=== PATIENT | male | born 1940 | race Caucasian/White ===

== ENCOUNTER 2018-05-02 14:04 | Inpatient (IN) | payer MEDICARE, OTHER ==
[2018-05-02] MEDS: AMIODARONE 900MG/D5W DRIP 500 ML IV ×3 (14:17→14:30)
[2018-05-02] MEDS: VECURONIUM 100 MG in DEXTROSE 5% 100 ML IV (14:17)
[2018-05-02 14:30] LABS: ADD MAN DIFF? NO
[2018-05-02] MEDS ORDERED: FENTAnyl 50 MCG/ML VIAL IV (14:30)
[2018-05-02 14:36] LABS: WHITE BLOOD COUNT 8.1 10^3/ul (4.8-10.8)
[2018-05-02 14:36] LABS: ABNORMAL IP MESSAGE 1; BASOPHIL # 0.1 10^3/ul (0.0-0.1); BASOPHILS % 0.9 % (0.0-2.0); EOSINOPHILS # 0.2 10^3/ul (0.0-0.5); EOSINOPHILS % 2.6 % (0.0-7.0); HEMATOCRIT 40.6 % (42.0-52.0); HEMOGLOBIN 13.4 g/dl (14.0-18.0); LYMPHOCYTES # 5.6 10^3/ul (0.8-2.9); LYMPHOCYTES % 68.5 % (15.0-51.0); MEAN CORPUSCULAR HEMOGLOBIN 30.6 pg (29.0-33.0); MEAN CORPUSCULAR VOLUME 92.7 fl (82.0-101.0); MONOCYTE # 0.4 10^3/ul (0.3-0.9); MONOCYTES % 5.3 % (0.0-11.0); NEUTROPHIL # 1.7 10^3/ul (1.6-7.5); NEUTROPHILS % 20.9 % (39.0-77.0); PLATELET COUNT 220 10^3/UL (140-415); POSITIVE DIFF @See below; RED BLOOD COUNT 4.38 10^6/ul (4.70-6.10); RED CELL DISTRIBUTION WIDTH 13.6 % (11.5-14.5)
[2018-05-02 14:55] LABS: INR 1.05; PROTIME 13.8 Sec (11.9-14.9); PT RATIO 1.1
[2018-05-02 14:56] LABS: PARTIAL THROMBOPLASTIN TIME 42.1 Sec (25.0-35.0)
[2018-05-02 14:57] LABS: MAGNESIUM 2.6 mg/dl (1.7-2.5)
[2018-05-02 14:58] LABS: ALANINE AMINOTRANSFERASE 136 IU/L (13-69); ALBUMIN/GLOBULIN RATIO 1.37; ALKALINE PHOSPHATASE 99 IU/L (42-121); ANION GAP 23 (8-16); ASPARTATE AMINO TRANSFERASE 125 IU/L (15-46); BILIRUBIN,INDIRECT 0.4 mg/dl (0-1.1); BILIRUBIN,TOTAL 0.4 mg/dl (0.2-1.3); BLOOD UREA NITROGEN 14 mg/dl (7-20); CALCIUM 10.1 mg/dl (8.4-10.2); CARBON DIOXIDE 18 mmol/L (21-31); CHLORIDE 94 mmol/L (97-110); CREATININE 1.13 mg/dl (0.61-1.24); GLUCOSE 325 mg/dl (70-220); POTASSIUM 4.2 mmol/L (3.5-5.1); SODIUM 131 mmol/L (135-144); TOTAL PROTEIN 6.9 g/dl (6.1-8.1)
[2018-05-02 15:00] LABS: LACTIC ACID 11.3 mmol/L (0.5-2.0)
[2018-05-02 15:09] LABS: TROPONIN-I 0.018 ng/ml (0.000-0.120)
[2018-05-02 15:18] LABS: ADD UMIC NO; UR ASCORBIC ACID NEGATIVE (NEGATIVE); UR BILIRUBIN (Dip) NEGATIVE (NEGATIVE); UR BLOOD (Dip) NEGATIVE (NEGATIVE); UR CLARITY CLEAR (CLEAR); UR COLOR COLORLESS (YELLOW); UR GLUCOSE (Dip) NEGATIVE (NEGATIVE); UR KETONES (Dip) NEGATIVE (NEGATIVE); UR LEUKOCYTE ESTERASE (Dip) NEGATIVE Leu/ul (NEGATIVE); UR NITRITE (Dip) NEGATIVE (NEGATIVE); UR SPECIFIC GRAVITY (Dip) 1.004 (1.003-1.030); UR TOTAL PROTEIN (Dip) NEGATIVE (NEGATIVE); UR UROBILINOGEN (Dip) NEGATIVE (NEGATIVE)
[2018-05-02] MEDS ORDERED: SOD CHLORIDE 0.9% 1,000 ML IV (15:55)
[2018-05-02] MEDS ORDERED: PROPOFOL 100 ML (16:26)
[2018-05-02] MEDS: SODIUM CHLORIDE 0.9% 500 ML BAG IV* (16:30)
[2018-05-02] MEDS: PROPOFOL 100 ML IV ×2 (16:45→22:55)
[2018-05-02] MEDS ORDERED: DEXTROSE 5%-0.45% NACL 1,000 ML IV (16:54)
[2018-05-02] MEDS ORDERED: MAGNESIUM HYDROXIDE 30ML CUP PO (17:00)
[2018-05-02] MEDS ORDERED: morphine 2 MG INJ IV (17:00)
[2018-05-02] MEDS ORDERED: ALBUTEROL HFA 8 GM INHALER INH (17:00)
[2018-05-02] MEDS: SOD CHLORIDE 0.9% 1,000 ML IV (17:00)
[2018-05-02 17:17] LABS: CREATINE KINASE 126 IU/L (23-200)
[2018-05-02 17:31] LABS: HEMOGLOBIN A1C 8.4 % (0-5.9)
[2018-05-02] MEDS ORDERED: DEXTROSE 50% 50 ML SYRINGE IV ×2 (18:00)
[2018-05-02] MEDS ORDERED: GLUCAGON 1 MG INJ IM (18:00)
[2018-05-02] MEDS ORDERED: GLUCOSE GEL 15 GRAM TUBE BUCCAL (18:00)
[2018-05-02] MEDS ORDERED: GLUCOSE GEL 15 GRAM TUBE PO (18:00)
[2018-05-02 18:14] LABS: AADO2 Arterial 404.7 mmHg (7.0-24.0); Allen Test ACCEPTAB; Arterial Base Excess -6.3 mmol/L (-3.0-3); Arterial Blood Gas Oxygen Sat 99.4 mmHG (95.0-100.0); Arterial COHb 0.2 % (0.0-3.0); Arterial Fraction of Oxyhgb 99.1 % (93.0-99.0); Arterial HCO3 18.2 mmol/L (22.0-26.0); Arterial MetHb 0.1 % (0.0-1.5); Arterial Total Hemglobin 13.2 g/dl (12.0-18.0); Arterial pCO2 33.2 mmhg (35-45); MODE VENT - AC; Site A-Line
[2018-05-02 19:44] LABS: CK INDEX 7.9
[2018-05-02 19:59] LABS: LACTIC ACID 3.2 mmol/L (0.5-2.0)
[2018-05-02 20:15] LABS: CREATINE KINASE 1071 IU/L (23-200)
[2018-05-02 22:43] LABS: CREATINE KINASE 1264 IU/L (23-200)
[2018-05-02] MEDS: INSULIN GLARGINE [LANTus] (100 UNITS/ML) SYG SC (22:56)
[2018-05-02] MEDS: INSULIN ASPART [NOVOLOG] 3 ML PEN SC (22:57)
[2018-05-02] MEDS: CLOPIDOGREL 75 MG TAB PO (23:52)
[2018-05-02] MEDS: ENOXAPARIN 60 MG/0.6 ML SYG SC (23:54)
[2018-05-03] MEDS: SOD CHLORIDE 0.9% 1,000 ML IV (02:00)
[2018-05-03] MEDS: INSULIN ASPART [NOVOLOG] 3 ML PEN SC ×3 (02:01→22:10)
[2018-05-03 05:24] LABS: ADD MAN DIFF? NO
[2018-05-03 05:36] LABS: WHITE BLOOD COUNT 12.9 10^3/ul (4.8-10.8)
[2018-05-03 05:36] LABS: BASOPHILS % 0.1 % (0.0-2.0); HEMATOCRIT 35.6 % (42.0-52.0); HEMOGLOBIN 12.2 g/dl (14.0-18.0); LYMPHOCYTES # 0.7 10^3/ul (0.8-2.9); LYMPHOCYTES % 5.2 % (15.0-51.0); MEAN CORPUSCULAR HEMOGLOBIN 30.2 pg (29.0-33.0); MEAN CORPUSCULAR HGB CONC 34.3 g/dl (32.0-37.0); MEAN CORPUSCULAR VOLUME 88.1 fl (82.0-101.0); MEAN PLATELET VOLUME 10.1 fl (7.4-10.4); MONOCYTE # 1.2 10^3/ul (0.3-0.9); MONOCYTES % 8.9 % (0.0-11.0); PLATELET COUNT 275 10^3/UL (140-415); RED BLOOD COUNT 4.04 10^6/ul (4.70-6.10); RED CELL DISTRIBUTION WIDTH 13.9 % (11.5-14.5)
[2018-05-03 05:51] LABS: CHOL/HDL RATIO 2.3 RATIO; HDL CHOLESTEROL 52 mg/dl (31-75); LDL CHOLESTEROL,CALCULATED 36 mg/dl; TRIGLYCERIDES 168 mg/dl (0-149)
[2018-05-03 05:51] LABS: CHOLESTEROL 122 mg/dl (100-200)
[2018-05-03 05:59] LABS: B-TYPE NATRIURETIC PEPTIDE 6080 PG/ML (0-450)
[2018-05-03 06:00] LABS: CREATINE KINASE 1270 IU/L (23-200)
[2018-05-03 06:03] LABS: ALANINE AMINOTRANSFERASE 165 IU/L (13-69); ALBUMIN 3.7 g/dl (3.3-4.9); ALKALINE PHOSPHATASE 100 IU/L (42-121); ANION GAP 16 (8-16); ASPARTATE AMINO TRANSFERASE 206 IU/L (15-46); BILIRUBIN,INDIRECT 0.4 mg/dl (0-1.1); BILIRUBIN,TOTAL 0.4 mg/dl (0.2-1.3); BLOOD UREA NITROGEN 23 mg/dl (7-20); CALCIUM 8.8 mg/dl (8.4-10.2); CARBON DIOXIDE 25 mmol/L (21-31); CHLORIDE 96 mmol/L (97-110); CREATININE 1.28 mg/dl (0.61-1.24); GLUCOSE 334 mg/dl (70-220); MAGNESIUM 1.9 mg/dl (1.7-2.5); POTASSIUM 4.5 mmol/L (3.5-5.1); SODIUM 132 mmol/L (135-144); TOTAL PROTEIN 6.4 g/dl (6.1-8.1)
[2018-05-03 06:04] LABS: ALBUMIN/GLOBULIN RATIO 1.37
[2018-05-03 06:07] LABS: CK INDEX 5.9
[2018-05-03] MEDS: PROPOFOL 100 ML IV (06:47)
[2018-05-03] MEDS: PANTOPRAZOLE 40 MG INJ IV (06:47)
[2018-05-03] MEDS ORDERED: DEXTROSE 50% 50 ML SYRINGE IV ×2 (08:30)
[2018-05-03] MEDS ORDERED: ASPIRIN (EC) 81 MG TAB PO (09:00)
[2018-05-03] MEDS: ACCU-CHEK XX ×10 (09:20→17:30)
[2018-05-03] MEDS: CLOPIDOGREL 75 MG TAB PO (09:29)
[2018-05-03] MEDS: BENAZEPRIL 5 MG TAB PO (09:29)
[2018-05-03] MEDS: ENOXAPARIN 100 MG/ML SYG SC ×2 (09:30→22:09)
[2018-05-03] MEDS: ASPIRIN 81 MG TAB PO (09:30)
[2018-05-03] MEDS: METOPROLOL (XL) 25 MG TAB PO ×2 (09:30→22:12)
[2018-05-03] MEDS: INSULIN HUMAN REGULAR 100 UNIT in SOD CHLORIDE 0.9% 99 ML IV (09:31)
[2018-05-03 10:09] LABS: AADO2 Arterial 143.4 mmHg (7.0-24.0); Allen Test ACCEPTAB; Arterial Base Excess 1.1 mmol/L (-3.0-3); Arterial Blood Gas Oxygen Sat 97.8 mmHG (95.0-100.0); Arterial COHb 0.1 % (0.0-3.0); Arterial Fraction of Oxyhgb 97.6 % (93.0-99.0); Arterial HCO3 24.6 mmol/L (22.0-26.0); Arterial MetHb 0.1 % (0.0-1.5); Arterial Total Hemglobin 13.6 g/dl (12.0-18.0); Arterial pCO2 35.5 mmhg (35-45); Blood Gas PS 10; MODE VENT - CPAP; Site Right Radial
[2018-05-03] MEDS: FUROSEMIDE 20 MG INJ IV (13:46)
[2018-05-03] MEDS: MIDAZOLAM (DRIP) 50 mg/50 mL 50 ML IV (14:30)
[2018-05-03] MEDS: INSULIN GLARGINE [LANTus] (100 UNITS/ML) SYG SC (22:11)
[2018-05-03 23:08] LABS: CREATININE,URINE RANDOM 138.08 mg/dl (20-370)
[2018-05-03] MEDS: ONDANSETRON 4 MG INJ IV (23:11)
[2018-05-03 23:33] LABS: SODIUM,URINE RANDOM < 13 mmol/L (30-90)
[2018-05-04] MEDS: ACCU-CHEK XX (02:00)
[2018-05-04] MEDS: PANTOPRAZOLE 40 MG INJ IV (05:30)
[2018-05-04 06:15] LABS: ADD MAN DIFF? NO
[2018-05-04 06:17] LABS: WHITE BLOOD COUNT 14.7 10^3/ul (4.8-10.8)
[2018-05-04 06:17] LABS: BASOPHILS % 0.1 % (0.0-2.0); HEMATOCRIT 35.1 % (42.0-52.0); HEMOGLOBIN 11.9 g/dl (14.0-18.0); LYMPHOCYTES % 6.7 % (15.0-51.0); MEAN CORPUSCULAR HEMOGLOBIN 30.1 pg (29.0-33.0); MEAN CORPUSCULAR HGB CONC 33.9 g/dl (32.0-37.0); MEAN CORPUSCULAR VOLUME 88.9 fl (82.0-101.0); MONOCYTE # 1.1 10^3/ul (0.3-0.9); MONOCYTES % 7.8 % (0.0-11.0); NEUTROPHIL # 12.4 10^3/ul (1.6-7.5); NEUTROPHILS % 84.7 % (39.0-77.0); PLATELET COUNT 270 10^3/UL (140-415); RED BLOOD COUNT 3.95 10^6/ul (4.70-6.10); RED CELL DISTRIBUTION WIDTH 14.3 % (11.5-14.5)
[2018-05-04 06:57] LABS: ALANINE AMINOTRANSFERASE 133 IU/L (13-69); ALBUMIN 3.8 g/dl (3.3-4.9); ALBUMIN/GLOBULIN RATIO 1.31; ALKALINE PHOSPHATASE 88 IU/L (42-121); ANION GAP 16 (8-16); ASPARTATE AMINO TRANSFERASE 123 IU/L (15-46); BILIRUBIN,INDIRECT 0.6 mg/dl (0-1.1); BILIRUBIN,TOTAL 0.6 mg/dl (0.2-1.3); BLOOD UREA NITROGEN 19 mg/dl (7-20); CALCIUM 8.8 mg/dl (8.4-10.2); CARBON DIOXIDE 27 mmol/L (21-31); CHLORIDE 94 mmol/L (97-110); CREATININE 1.32 mg/dl (0.61-1.24); GLUCOSE 221 mg/dl (70-220); MAGNESIUM 1.9 mg/dl (1.7-2.5); POTASSIUM 3.4 mmol/L (3.5-5.1); SODIUM 134 mmol/L (135-144); TOTAL PROTEIN 6.7 g/dl (6.1-8.1)
[2018-05-04] MEDS: GLUCOSE GEL 15 GRAM TUBE PO (08:00)
[2018-05-04] MEDS: INSULIN ASPART [NOVOLOG] 3 ML PEN SC ×7 (08:13→21:00)
[2018-05-04] MEDS: ASPIRIN 81 MG TAB PO (08:18)
[2018-05-04] MEDS: BENAZEPRIL 5 MG TAB PO ×2 (08:18→17:14)
[2018-05-04] MEDS: POTASSIUM CHLORIDE (SR) 20 MEQ TAB PO ×2 (08:19→15:23)
[2018-05-04] MEDS: METOPROLOL (XL) 25 MG TAB PO ×2 (08:19→21:10)
[2018-05-04] MEDS: CLOPIDOGREL 75 MG TAB PO (08:19)
[2018-05-04] MEDS: ENOXAPARIN 100 MG/ML SYG SC (08:27)
[2018-05-04] MEDS: FUROSEMIDE 20 MG TAB PO (09:07)
[2018-05-04] MEDS: POLYETHYLENE GLYCOL 17 GM PACKET PO (10:40)
[2018-05-04] MEDS: FUROSEMIDE 20 MG INJ IV (17:14)
[2018-05-04 17:18] LABS: CREATINE KINASE 753 IU/L (23-200)
[2018-05-04 17:31] LABS: CK-MB 7.82 ng/ml (0.0-2.4)
[2018-05-04] MEDS: DOCUSATE SODIUM 100 MG CAP PO (21:10)
[2018-05-04] MEDS: INSULIN GLARGINE [LANTus] (100 UNITS/ML) SYG SC (21:12)
[2018-05-05] MEDS: ACCU-CHEK XX (02:00)
[2018-05-05] MEDS: FUROSEMIDE 20 MG INJ IV ×2 (05:52→17:21)
[2018-05-05 06:41] LABS: ADD MAN DIFF? NO
[2018-05-05 06:43] LABS: ABNORMAL IP MESSAGE 1; BASOPHILS % 0.2 % (0.0-2.0); HEMATOCRIT 38.4 % (42.0-52.0); HEMOGLOBIN 13.2 g/dl (14.0-18.0); LYMPHOCYTES # 1.3 10^3/ul (0.8-2.9); MEAN CORPUSCULAR HEMOGLOBIN 30.6 pg (29.0-33.0); MEAN CORPUSCULAR HGB CONC 34.4 g/dl (32.0-37.0); MEAN CORPUSCULAR VOLUME 88.9 fl (82.0-101.0); MEAN PLATELET VOLUME 10.1 fl (7.4-10.4); MONOCYTE # 1.5 10^3/ul (0.3-0.9); MONOCYTES % 9.4 % (0.0-11.0); NEUTROPHIL # 13.4 10^3/ul (1.6-7.5); NEUTROPHILS % 81.9 % (39.0-77.0); PLATELET COUNT 333 10^3/UL (140-415); POSITIVE DIFF @See below; RED BLOOD COUNT 4.32 10^6/ul (4.70-6.10); RED CELL DISTRIBUTION WIDTH 13.8 % (11.5-14.5)
[2018-05-05 06:43] LABS: WHITE BLOOD COUNT 16.3 10^3/ul (4.8-10.8)
[2018-05-05 07:16] LABS: CK-MB 4.25 ng/ml (0.0-2.4)
[2018-05-05 07:23] LABS: CK INDEX 0.9; CREATINE KINASE 458 IU/L (23-200)
[2018-05-05 07:31] LABS: ALANINE AMINOTRANSFERASE 113 IU/L (13-69); ALBUMIN 3.9 g/dl (3.3-4.9); ALKALINE PHOSPHATASE 102 IU/L (42-121); ANION GAP 17 (8-16); ASPARTATE AMINO TRANSFERASE 71 IU/L (15-46); BILIRUBIN,INDIRECT 0.7 mg/dl (0-1.1); BILIRUBIN,TOTAL 0.7 mg/dl (0.2-1.3); BLOOD UREA NITROGEN 17 mg/dl (7-20); CALCIUM 9.1 mg/dl (8.4-10.2); CARBON DIOXIDE 26 mmol/L (21-31); CHLORIDE 95 mmol/L (97-110); GLUCOSE 198 mg/dl (70-220); MAGNESIUM 2.2 mg/dl (1.7-2.5); POTASSIUM 3.5 mmol/L (3.5-5.1); SODIUM 134 mmol/L (135-144); TOTAL PROTEIN 6.9 g/dl (6.1-8.1)
[2018-05-05 07:39] LABS: HEPATITIS B SURFACE ANTIGEN NEGATIVE (NEGATIVE)
[2018-05-05 07:57] LABS: HEPATITIS B CORE ANTIBODY NEGATIVE (NEGATIVE); HEPATITIS C VIRAL ANTIBODY NEGATIVE (NEGATIVE)
[2018-05-05] MEDS: ASPIRIN 81 MG TAB PO (08:09)
[2018-05-05] MEDS: CLOPIDOGREL 75 MG TAB PO (08:09)
[2018-05-05] MEDS: METOPROLOL (XL) 25 MG TAB PO ×2 (08:10→21:13)
[2018-05-05] MEDS: BENAZEPRIL 10 MG TAB PO (08:10)
[2018-05-05] MEDS: ENOXAPARIN 40 MG/0.4 ML SYG SC (08:12)
[2018-05-05] MEDS: INSULIN ASPART [NOVOLOG] 3 ML PEN SC ×7 (08:13→21:00)
[2018-05-05 14:08] LABS: HEPATITIS B SURFACE ANTIBODY NEGATIVE (NEGATIVE)
[2018-05-05 17:29] LABS: CHOLESTEROL 172 mg/dl (100-200)
[2018-05-05 17:29] LABS: CHOL/HDL RATIO 2.6 RATIO; HDL CHOLESTEROL 66 mg/dl (31-75); LDL CHOLESTEROL,CALCULATED 71 mg/dl; TRIGLYCERIDES 176 mg/dl (0-149)
[2018-05-05] MEDS: INSULIN GLARGINE [LANTus] (100 UNITS/ML) SYG SC (20:02)
[2018-05-05] MEDS: ATORVASTATIN 20 MG TAB PO (21:13)
[2018-05-06] MEDS: ACCU-CHEK XX (02:00)
[2018-05-06] MEDS: FUROSEMIDE 20 MG INJ IV ×2 (05:57→17:12)
[2018-05-06 06:14] LABS: ADD MAN DIFF? NO
[2018-05-06 06:17] LABS: WHITE BLOOD COUNT 22.4 10^3/ul (4.8-10.8)
[2018-05-06 06:17] LABS: ABNORMAL IP MESSAGE 1; BASOPHIL # 0.1 10^3/ul (0.0-0.1); BASOPHILS % 0.3 % (0.0-2.0); HEMATOCRIT 39.3 % (42.0-52.0); HEMOGLOBIN 13.6 g/dl (14.0-18.0); LYMPHOCYTES # 1.5 10^3/ul (0.8-2.9); LYMPHOCYTES % 6.8 % (15.0-51.0); MEAN CORPUSCULAR HEMOGLOBIN 30.1 pg (29.0-33.0); MEAN CORPUSCULAR HGB CONC 34.6 g/dl (32.0-37.0); MEAN CORPUSCULAR VOLUME 86.9 fl (82.0-101.0); MEAN PLATELET VOLUME 9.9 fl (7.4-10.4); MONOCYTE # 2.2 10^3/ul (0.3-0.9); MONOCYTES % 9.7 % (0.0-11.0); NEUTROPHIL # 18.5 10^3/ul (1.6-7.5); NEUTROPHILS % 82.4 % (39.0-77.0); PLATELET COUNT 437 10^3/UL (140-415); POSITIVE DIFF @See below; RED BLOOD COUNT 4.52 10^6/ul (4.70-6.10); RED CELL DISTRIBUTION WIDTH 13.7 % (11.5-14.5)
[2018-05-06 06:51] LABS: ANION GAP 21 (8-16); BLOOD UREA NITROGEN 33 mg/dl (7-20); CALCIUM 9.2 mg/dl (8.4-10.2); CARBON DIOXIDE 25 mmol/L (21-31); CHLORIDE 92 mmol/L (97-110); GLUCOSE 178 mg/dl (70-220); MAGNESIUM 2.6 mg/dl (1.7-2.5); POTASSIUM 3.7 mmol/L (3.5-5.1); SODIUM 134 mmol/L (135-144)
[2018-05-06] MEDS: CLOPIDOGREL 75 MG TAB PO (08:14)
[2018-05-06] MEDS: ASPIRIN 81 MG TAB PO (08:14)
[2018-05-06] MEDS: BENAZEPRIL 10 MG TAB PO (08:14)
[2018-05-06] MEDS: METOPROLOL (XL) 25 MG TAB PO ×2 (08:14→21:00)
[2018-05-06] MEDS: ENOXAPARIN 40 MG/0.4 ML SYG SC (08:17)
[2018-05-06] MEDS: INSULIN ASPART [NOVOLOG] 3 ML PEN SC ×7 (08:18→20:59)
[2018-05-06] MEDS: ATORVASTATIN 20 MG TAB PO (20:59)
[2018-05-06] MEDS: INSULIN GLARGINE [LANTus] (100 UNITS/ML) SYG SC (21:06)
[2018-05-07] MEDS: ACCU-CHEK XX (02:40)
[2018-05-07] MEDS: ONDANSETRON 4 MG INJ IV (02:52)
[2018-05-07] MEDS: FUROSEMIDE 20 MG INJ IV ×2 (06:46→17:27)
[2018-05-07] MEDS: INSULIN ASPART [NOVOLOG] 3 ML PEN SC ×8 (08:03→20:34)
[2018-05-07] MEDS: ASPIRIN 81 MG TAB PO (08:53)
[2018-05-07] MEDS: CLOPIDOGREL 75 MG TAB PO (08:53)
[2018-05-07] MEDS: METOPROLOL (XL) 25 MG TAB PO ×2 (08:53→20:39)
[2018-05-07] MEDS: BENAZEPRIL 10 MG TAB PO (08:53)
[2018-05-07] MEDS: ENOXAPARIN 40 MG/0.4 ML SYG SC (08:54)
[2018-05-07 09:12] LABS: ABNORMAL IP MESSAGE 1; HEMATOCRIT 40.8 % (42.0-52.0); HEMOGLOBIN 13.9 g/dl (14.0-18.0); MEAN CORPUSCULAR HEMOGLOBIN 30.2 pg (29.0-33.0); MEAN CORPUSCULAR HGB CONC 34.1 g/dl (32.0-37.0); MEAN CORPUSCULAR VOLUME 88.7 fl (82.0-101.0); MEAN PLATELET VOLUME 9.8 fl (7.4-10.4); PLATELET COUNT 524 10^3/UL (140-415); POSITIVE DIFF @See below
[2018-05-07 09:12] LABS: WHITE BLOOD COUNT 25.9 10^3/ul (4.8-10.8)
[2018-05-07 09:13] LABS: ADD MAN DIFF? YES
[2018-05-07 09:32] LABS: ANION GAP 22 (8-16); BLOOD UREA NITROGEN 71 mg/dl (7-20); CALCIUM 9.3 mg/dl (8.4-10.2); CARBON DIOXIDE 28 mmol/L (21-31); CHLORIDE 90 mmol/L (97-110); CREATININE 2.64 mg/dl (0.61-1.24); GLUCOSE 158 mg/dl (70-220); MAGNESIUM 2.9 mg/dl (1.7-2.5); PHOSPHORUS 5.7 mg/dl (2.5-4.9); POTASSIUM 4.3 mmol/L (3.5-5.1); SODIUM 136 mmol/L (135-144)
[2018-05-07 09:46] LABS: ANISOCYTOSIS 1+ (0-0); BAND NEUTROPHILS #M 0.5 10^3/ul (0.0-0.6); BAND NEUTROPHILS % (M) 2 % (0-4); BURR CELLS 1+ (0-0); LYMPHOCYTES % (M) 8 % (15-51); MICROCYTOSIS 1+ (0-0); MONOCYTE #M 1.8 10^3/ul (0.3-0.9); MONOCYTES % (M) 7 % (0-11); PLATELET ESTIMATE INCREASED; POIKILOCYTOSIS 1+ (0-0); POLYCHROMASIA 1+ (0-0); SEG NEUT #M 21.6 10^3/ul (1.6-7.5); SEGMENTED NEUTROPHILS (M) % 83 % (39-77); SMUDGE%M 15 % (0-0)
[2018-05-07] MEDS: IOHEXOL 14.3 MG(I)/ML (ADULT) BTL PO (11:00)
[2018-05-07] MEDS: CEFEPIME 1GM/50 ML (PMX) 50 ML IVPB ×2 (11:29→20:36)
[2018-05-07 12:18] LABS: OCCULT BLOOD STOOL NEGATIVE (NEGATIVE)
[2018-05-07 12:20] LABS: AADO2 Arterial 238.9 mmHg (7.0-24.0); Allen Test ACCEPTAB; Arterial Blood Gas Oxygen Sat 93.6 mmHG (95.0-100.0); Arterial COHb 0.6 % (0.0-3.0); Arterial Fraction of Oxyhgb 92.9 % (93.0-99.0); Arterial HCO3 25.6 mmol/L (22.0-26.0); Arterial MetHb 0.1 % (0.0-1.5); Arterial Total Hemglobin 13.8 g/dl (12.0-18.0); Arterial pCO2 40.7 mmhg (35-45); Blood Gas PS 10; MODE MASK - CPAP; Site Right Radial
[2018-05-07] MEDS ORDERED: hydrALAzine 20 MG INJ IV (15:30)
[2018-05-07] MEDS ORDERED: morphine LIQ (10 MG/5 ML) CUP PO (17:00)
[2018-05-07 17:21] LABS: CREATININE, RANDOM URINE 149 mg/dL (20-370); MICROALBUMIN 6.3 mg/dL; MICROALBUMIN/CREATININE RATIO 42 (<30)
[2018-05-07 17:40] LABS: HEMATOCRIT 35.6 % (42.0-52.0); HEMOGLOBIN 12.5 g/dl (14.0-18.0)
[2018-05-07] MEDS: ATORVASTATIN 20 MG TAB PO (20:39)
[2018-05-07] MEDS: INSULIN GLARGINE [LANTus] (100 UNITS/ML) SYG SC (21:02)
[2018-05-08] MEDS: INSULIN ASPART [NOVOLOG] 3 ML PEN SC ×9 (01:00→20:45)
[2018-05-08 01:09] LABS: HEMATOCRIT 36.4 % (42.0-52.0); HEMOGLOBIN 12.7 g/dl (14.0-18.0)
[2018-05-08] MEDS: ACCU-CHEK XX (02:05)
[2018-05-08] MEDS: FUROSEMIDE 20 MG INJ IV (05:03)
[2018-05-08 07:08] LABS: ADD UMIC NO; UR ASCORBIC ACID NEGATIVE (NEGATIVE); UR BILIRUBIN (Dip) NEGATIVE (NEGATIVE); UR BLOOD (Dip) NEGATIVE (NEGATIVE); UR CLARITY SLIGHTLY CLOUDY (CLEAR); UR COLOR YELLOW (YELLOW); UR GLUCOSE (Dip) NEGATIVE (NEGATIVE); UR KETONES (Dip) NEGATIVE (NEGATIVE); UR LEUKOCYTE ESTERASE (Dip) NEGATIVE Leu/ul (NEGATIVE); UR NITRITE (Dip) NEGATIVE (NEGATIVE); UR RBC 1 /HPF (0-5); UR SPECIFIC GRAVITY (Dip) 1.013 (1.003-1.030); UR TOTAL PROTEIN (Dip) NEGATIVE (NEGATIVE); UR UROBILINOGEN (Dip) NEGATIVE (NEGATIVE); UR WBC 0 /HPF (0-5)
[2018-05-08] MEDS: SOD CHLORIDE 0.45% 1,000 ML IV (08:47)
[2018-05-08] MEDS: ASPIRIN 81 MG TAB PO (08:48)
[2018-05-08] MEDS: CEFEPIME 1GM/50 ML (PMX) 50 ML IVPB ×2 (08:48→21:55)
[2018-05-08] MEDS: CLOPIDOGREL 75 MG TAB PO (08:48)
[2018-05-08] MEDS: ARTIFICIAL TEARS 15 ML OPH BOTH EYES (08:48)
[2018-05-08] MEDS: METOPROLOL (XL) 25 MG TAB PO ×2 (08:49→20:42)
[2018-05-08 09:25] LABS: HEMATOCRIT 36.9 % (42.0-52.0); HEMOGLOBIN 12.7 g/dl (14.0-18.0)
[2018-05-08 10:19] LABS: ADD MAN DIFF? NO
[2018-05-08 10:21] LABS: ABNORMAL IP MESSAGE 1; BASOPHIL # 0.1 10^3/ul (0.0-0.1); BASOPHILS % 0.4 % (0.0-2.0); EOSINOPHILS # 0.1 10^3/ul (0.0-0.5); EOSINOPHILS % 0.4 % (0.0-7.0); LYMPHOCYTES # 1.1 10^3/ul (0.8-2.9); LYMPHOCYTES % 7.7 % (15.0-51.0); MEAN CORPUSCULAR HEMOGLOBIN 30.2 pg (29.0-33.0); MEAN CORPUSCULAR HGB CONC 34.3 g/dl (32.0-37.0); MEAN CORPUSCULAR VOLUME 88.1 fl (82.0-101.0); MEAN PLATELET VOLUME 10.2 fl (7.4-10.4); MONOCYTE # 1.9 10^3/ul (0.3-0.9); MONOCYTES % 13.3 % (0.0-11.0); NEUTROPHIL # 10.9 10^3/ul (1.6-7.5); NEUTROPHILS % 77.3 % (39.0-77.0); PLATELET COUNT 448 10^3/UL (140-415); POSITIVE DIFF @See below
[2018-05-08 10:21] LABS: WHITE BLOOD COUNT 14.1 10^3/ul (4.8-10.8)
[2018-05-08 10:23] LABS: ANION GAP 19 (8-16); BLOOD UREA NITROGEN 103 mg/dl (7-20); CALCIUM 8.7 mg/dl (8.4-10.2); CARBON DIOXIDE 29 mmol/L (21-31); CHLORIDE 91 mmol/L (97-110); GLUCOSE 165 mg/dl (70-220); POTASSIUM 3.6 mmol/L (3.5-5.1); SODIUM 135 mmol/L (135-144)
[2018-05-08 10:24] LABS: HEMOGLOBIN 12.7 g/dl (14.0-18.0)
[2018-05-08] MEDS: NEOMYC/POLYMYX/BACIT 0.9 GM OINT TOP (18:32)
[2018-05-08] MEDS: ATORVASTATIN 20 MG TAB PO (21:00)
[2018-05-08] MEDS: INSULIN GLARGINE [LANTus] (100 UNITS/ML) SYG SC (21:57)
[2018-05-09] MEDS: INSULIN ASPART [NOVOLOG] 3 ML PEN SC ×9 (01:06→21:14)
[2018-05-09] MEDS: ACCU-CHEK XX (02:00)
[2018-05-09] MEDS: SOD CHLORIDE 0.45% 1,000 ML IV (05:04)
[2018-05-09 07:37] LABS: ADD MAN DIFF? NO
[2018-05-09 07:49] LABS: WHITE BLOOD COUNT 12.2 10^3/ul (4.8-10.8)
[2018-05-09 07:49] LABS: ABNORMAL IP MESSAGE 1; BASOPHIL # 0.1 10^3/ul (0.0-0.1); BASOPHILS % 0.4 % (0.0-2.0); EOSINOPHILS # 0.2 10^3/ul (0.0-0.5); EOSINOPHILS % 1.3 % (0.0-7.0); HEMATOCRIT 36.7 % (42.0-52.0); HEMOGLOBIN 12.8 g/dl (14.0-18.0); LYMPHOCYTES % 8.5 % (15.0-51.0); MEAN CORPUSCULAR HEMOGLOBIN 30.8 pg (29.0-33.0); MEAN CORPUSCULAR HGB CONC 34.9 g/dl (32.0-37.0); MEAN CORPUSCULAR VOLUME 88.4 fl (82.0-101.0); MEAN PLATELET VOLUME 9.8 fl (7.4-10.4); MONOCYTE # 1.6 10^3/ul (0.3-0.9); MONOCYTES % 13.4 % (0.0-11.0); NEUTROPHIL # 9.2 10^3/ul (1.6-7.5); NEUTROPHILS % 75.3 % (39.0-77.0); PLATELET COUNT 477 10^3/UL (140-415); POSITIVE DIFF @See below; RED BLOOD COUNT 4.15 10^6/ul (4.70-6.10); RED CELL DISTRIBUTION WIDTH 13.9 % (11.5-14.5)
[2018-05-09 08:31] LABS: ANION GAP 16 (8-16); BLOOD UREA NITROGEN 95 mg/dl (7-20); CALCIUM 8.8 mg/dl (8.4-10.2); CARBON DIOXIDE 29 mmol/L (21-31); CHLORIDE 98 mmol/L (97-110); CREATININE 1.89 mg/dl (0.61-1.24); GLUCOSE 190 mg/dl (70-220); MAGNESIUM 3.5 mg/dl (1.7-2.5); PHOSPHORUS 3.8 mg/dl (2.5-4.9); POTASSIUM 3.3 mmol/L (3.5-5.1); SODIUM 140 mmol/L (135-144)
[2018-05-09] MEDS: METOPROLOL (XL) 25 MG TAB PO ×2 (08:50→21:00)
[2018-05-09] MEDS: CLOPIDOGREL 75 MG TAB PO (08:50)
[2018-05-09] MEDS: ASPIRIN 81 MG TAB PO (08:50)
[2018-05-09] MEDS: CEFEPIME 1GM/50 ML (PMX) 50 ML IVPB ×2 (08:53→20:59)
[2018-05-09] MEDS: SOD CHLORIDE 0.9% 1,000 ML IV ×3 (09:07→23:35)
[2018-05-09] MEDS: NEOMYC/POLYMYX/BACIT 0.9 GM OINT TOP (09:53)
[2018-05-09] MEDS: POTASSIUM CHLORIDE (SR) 20 MEQ TAB PO (11:01)
[2018-05-09] MEDS: POTASSIUM CHLORIDE 100 ML IVPB (16:54)
[2018-05-09] MEDS: ATORVASTATIN 20 MG TAB PO (21:00)
[2018-05-10] MEDS: INSULIN ASPART [NOVOLOG] 3 ML PEN SC ×9 (01:23→21:00)
[2018-05-10] MEDS: ACCU-CHEK XX (01:24)
[2018-05-10 08:05] LABS: ADD MAN DIFF? NO
[2018-05-10 08:10] LABS: ABNORMAL IP MESSAGE 1; BASOPHIL # 0.1 10^3/ul (0.0-0.1); BASOPHILS % 0.4 % (0.0-2.0); EOSINOPHILS # 0.2 10^3/ul (0.0-0.5); EOSINOPHILS % 1.5 % (0.0-7.0); HEMATOCRIT 38.7 % (42.0-52.0); HEMOGLOBIN 12.7 g/dl (14.0-18.0); LYMPHOCYTES # 1.2 10^3/ul (0.8-2.9); MEAN CORPUSCULAR HEMOGLOBIN 29.8 pg (29.0-33.0); MEAN CORPUSCULAR HGB CONC 32.8 g/dl (32.0-37.0); MEAN CORPUSCULAR VOLUME 90.8 fl (82.0-101.0); MEAN PLATELET VOLUME 9.7 fl (7.4-10.4); MONOCYTES % 16.3 % (0.0-11.0); NEUTROPHIL # 8.7 10^3/ul (1.6-7.5); NEUTROPHILS % 70.4 % (39.0-77.0); PLATELET COUNT 528 10^3/UL (140-415); POSITIVE DIFF @See below; RED BLOOD COUNT 4.26 10^6/ul (4.70-6.10); RED CELL DISTRIBUTION WIDTH 14.4 % (11.5-14.5)
[2018-05-10 08:10] LABS: WHITE BLOOD COUNT 12.3 10^3/ul (4.8-10.8)
[2018-05-10] MEDS: METOPROLOL (XL) 25 MG TAB PO (08:33)
[2018-05-10] MEDS: CLOPIDOGREL 75 MG TAB PO (08:33)
[2018-05-10] MEDS: ASPIRIN 81 MG TAB PO (08:33)
[2018-05-10] MEDS: CEFEPIME 1GM/50 ML (PMX) 50 ML IVPB ×2 (08:33→22:00)
[2018-05-10 08:36] LABS: ANION GAP 16 (8-16); BLOOD UREA NITROGEN 65 mg/dl (7-20); CALCIUM 8.8 mg/dl (8.4-10.2); CARBON DIOXIDE 29 mmol/L (21-31); CHLORIDE 109 mmol/L (97-110); CREATININE 1.43 mg/dl (0.61-1.24); GLUCOSE 229 mg/dl (70-220); MAGNESIUM 3.5 mg/dl (1.7-2.5); PHOSPHORUS 2.5 mg/dl (2.5-4.9); POTASSIUM 3.4 mmol/L (3.5-5.1); SODIUM 151 mmol/L (135-144)
[2018-05-10] MEDS: NEOMYC/POLYMYX/BACIT 0.9 GM OINT TOP ×2 (08:39→08:48)
[2018-05-10] MEDS: DEXTROSE 5% 1,000 ML IV (17:04)
[2018-05-10] MEDS: ATORVASTATIN 20 MG TAB PO (22:00)
[2018-05-10] MEDS: METOPROLOL 25 MG TAB NGT (23:15)
[2018-05-11] MEDS: INSULIN ASPART [NOVOLOG] 3 ML PEN SC ×9 (01:29→20:44)
[2018-05-11] MEDS: ACCU-CHEK XX ×3 (02:00→20:44)
[2018-05-11 07:22] LABS: ADD MAN DIFF? NO
[2018-05-11 07:27] LABS: WHITE BLOOD COUNT 18.1 10^3/ul (4.8-10.8)
[2018-05-11 07:27] LABS: ABNORMAL IP MESSAGE 1; BASOPHIL # 0.1 10^3/ul (0.0-0.1); BASOPHILS % 0.5 % (0.0-2.0); EOSINOPHILS # 0.1 10^3/ul (0.0-0.5); EOSINOPHILS % 0.7 % (0.0-7.0); HEMATOCRIT 42.9 % (42.0-52.0); LYMPHOCYTES % 10.9 % (15.0-51.0); MEAN CORPUSCULAR HEMOGLOBIN 29.6 pg (29.0-33.0); MEAN CORPUSCULAR HGB CONC 32.6 g/dl (32.0-37.0); MEAN CORPUSCULAR VOLUME 90.7 fl (82.0-101.0); MEAN PLATELET VOLUME 9.8 fl (7.4-10.4); NEUTROPHIL # 13.5 10^3/ul (1.6-7.5); NEUTROPHILS % 74.8 % (39.0-77.0); PLATELET COUNT 530 10^3/UL (140-415); POSITIVE DIFF @See below; RED BLOOD COUNT 4.73 10^6/ul (4.70-6.10); RED CELL DISTRIBUTION WIDTH 14.6 % (11.5-14.5)
[2018-05-11 07:48] LABS: ANION GAP 11 (8-16); BLOOD UREA NITROGEN 60 mg/dl (7-20); CALCIUM 9.2 mg/dl (8.4-10.2); CARBON DIOXIDE 31 mmol/L (21-31); CHLORIDE 113 mmol/L (97-110); CREATININE 1.73 mg/dl (0.61-1.24); GLUCOSE 318 mg/dl (70-220); MAGNESIUM 3.3 mg/dl (1.7-2.5); POTASSIUM 3.1 mmol/L (3.5-5.1); SODIUM 152 mmol/L (135-144)
[2018-05-11] MEDS ORDERED: POTASSIUM CHLORIDE 100 ML IVPB (08:30)
[2018-05-11] MEDS: CEFEPIME 1GM/50 ML (PMX) 50 ML IVPB ×2 (08:41→21:00)
[2018-05-11] MEDS: SOD CHLORIDE 0.45% 1,000 ML IV ×2 (08:41→16:50)
[2018-05-11] MEDS: ASPIRIN 81 MG TAB PO (08:42)
[2018-05-11] MEDS: CLOPIDOGREL 75 MG TAB PO (08:42)
[2018-05-11] MEDS: METOPROLOL 25 MG TAB NGT ×2 (08:42→20:40)
[2018-05-11] MEDS: NEOMYC/POLYMYX/BACIT 0.9 GM OINT TOP (08:47)
[2018-05-11] MEDS: POTASSIUM CHLORIDE 100 ML IVPB ×2 (10:43→12:12)
[2018-05-11 14:15] LABS: ANION GAP 11 (8-16); BLOOD UREA NITROGEN 63 mg/dl (7-20); CALCIUM 9.5 mg/dl (8.4-10.2); CARBON DIOXIDE 32 mmol/L (21-31); CHLORIDE 115 mmol/L (97-110); CREATININE 1.77 mg/dl (0.61-1.24); GLUCOSE 206 mg/dl (70-220); POTASSIUM 4.3 mmol/L (3.5-5.1); SODIUM 154 mmol/L (135-144)
[2018-05-11] MEDS ORDERED: TPN 1,000 ML IV (14:42)
[2018-05-11 15:47] LABS: ALANINE AMINOTRANSFERASE 91 IU/L (13-69); ALBUMIN 4.1 g/dl (3.3-4.9); ALBUMIN/GLOBULIN RATIO 1.05; ALKALINE PHOSPHATASE 121 IU/L (42-121); ANION GAP 12 (8-16); ASPARTATE AMINO TRANSFERASE 28 IU/L (15-46); BILIRUBIN,INDIRECT 0.3 mg/dl (0-1.1); BILIRUBIN,TOTAL 0.3 mg/dl (0.2-1.3); BLOOD UREA NITROGEN 62 mg/dl (7-20); CALCIUM 9.4 mg/dl (8.4-10.2); CARBON DIOXIDE 34 mmol/L (21-31); CHLORIDE 116 mmol/L (97-110); CREATININE 1.88 mg/dl (0.61-1.24); GLUCOSE 177 mg/dl (70-220); MAGNESIUM 3.5 mg/dl (1.7-2.5); PHOSPHORUS 2.4 mg/dl (2.5-4.9); POTASSIUM 4.4 mmol/L (3.5-5.1); SODIUM 158 mmol/L (135-144); TRIGLYCERIDES 203 mg/dl (0-149)
[2018-05-11 16:20] LABS: PREALBUMIN 12.6 mg/dl (17.6-36.0)
[2018-05-11] MEDS: ATORVASTATIN 20 MG TAB PO (20:43)
[2018-05-11] MEDS: ACETAMINOPHEN 650MG/20.3ML CUP PO (22:14)
[2018-05-11] MEDS ORDERED: LEVALBUTEROL (NEB) 0.63 MG/3 ML AMP HHN (23:00)
[2018-05-11] MEDS ORDERED: IPRATROPIUM (NEB) 0.5 MG/2.5 ML AMP HHN (23:00)
[2018-05-11] MEDS ORDERED: VANCOMYCIN IV PER PHARMACY XX (23:00)
[2018-05-11 23:58] LABS: Arterial Base Excess 7.4 mmol/L (-3.0-3); Arterial Blood Gas Oxygen Sat 97.3 mmHG (95.0-100.0); Arterial COHb 0.6 % (0.0-3.0); Arterial Fraction of Oxyhgb 96.6 % (93.0-99.0); Arterial HCO3 30.3 mmol/L (22.0-26.0); Arterial MetHb 0.1 % (0.0-1.5); Arterial Total Hemglobin 15.1 g/dl (12.0-18.0); Arterial pCO2 36.9 mmhg (35-45); Blood Gas IEPAP 18/8; Blood Gas PS 10; MODE MASK - BIPAP; Site Right Brachial
[2018-05-12] MEDS: VANCOMYCIN 2 GM in SOD CHLORIDE 0.9% 500 ML IVPB (00:04)
[2018-05-12] MEDS: ACCU-CHEK XX ×7 (01:00→21:10)
[2018-05-12] MEDS: INSULIN ASPART [NOVOLOG] 3 ML PEN SC ×4 (01:51→17:35)
[2018-05-12] MEDS: SOD CHLORIDE 0.45% 1,000 ML IV ×5 (01:59→21:40)
[2018-05-12] MEDS: Insulin NOVOLOG SS MILD Algorithm (NPO/TPN/ENTERAL FEEDS) SC ×5 (05:35→21:10)
[2018-05-12 08:14] LABS: WHITE BLOOD COUNT 27.1 10^3/ul (4.8-10.8)
[2018-05-12 08:14] LABS: ABNORMAL IP MESSAGE 1; HEMATOCRIT 44.4 % (42.0-52.0); HEMOGLOBIN 14.1 g/dl (14.0-18.0); MEAN CORPUSCULAR HEMOGLOBIN 29.6 pg (29.0-33.0); MEAN CORPUSCULAR HGB CONC 31.8 g/dl (32.0-37.0); MEAN CORPUSCULAR VOLUME 93.1 fl (82.0-101.0); PLATELET COUNT 482 10^3/UL (140-415); POSITIVE DIFF @See below; RED BLOOD COUNT 4.77 10^6/ul (4.70-6.10); RED CELL DISTRIBUTION WIDTH 14.6 % (11.5-14.5)
[2018-05-12 08:20] LABS: ADD MAN DIFF? YES
[2018-05-12 08:40] LABS: ANION GAP 12 (8-16); BLOOD UREA NITROGEN 82 mg/dl (7-20); CALCIUM 9.2 mg/dl (8.4-10.2); CARBON DIOXIDE 35 mmol/L (21-31); CHLORIDE 116 mmol/L (97-110); CREATININE 3.29 mg/dl (0.61-1.24); GLUCOSE 203 mg/dl (70-220); MAGNESIUM 3.4 mg/dl (1.7-2.5); PHOSPHORUS 3.8 mg/dl (2.5-4.9); POTASSIUM 3.9 mmol/L (3.5-5.1); SODIUM 159 mmol/L (135-144)
[2018-05-12] MEDS: NEOMYC/POLYMYX/BACIT 0.9 GM OINT TOP (08:46)
[2018-05-12] MEDS: METOPROLOL 25 MG TAB NGT ×2 (08:46→20:45)
[2018-05-12] MEDS: CEFEPIME 1GM/50 ML (PMX) 50 ML IVPB (08:51)
[2018-05-12] MEDS: ASPIRIN 81 MG TAB PO (08:51)
[2018-05-12] MEDS: CLOPIDOGREL 75 MG TAB PO (08:52)
[2018-05-12 10:06] LABS: ANISOCYTOSIS 1+ (0-0); BAND NEUTROPHILS #M 0.8 10^3/ul (0.0-0.6); BAND NEUTROPHILS % (M) 3 % (0-4); GIANT THROMBO% (M) 1 % (0-0); LYMPHOCYTES #M 2.1 10^3/ul (0.8-2.9); LYMPHOCYTES % (M) 8 % (15-51); METAMYELOCYTES #M 0.2 10^3/ul (0.0-0.0); METAMYELOCYTES %M 1 % (0-0); MICROCYTOSIS 1+ (0-0); MONOCYTE #M 1.3 10^3/ul (0.3-0.9); MONOCYTES % (M) 5 % (0-11); MYELOCYTES #M 0.2 10^3/ul (0.0-0.0); MYELOCYTES % (M) 1 % (0-0); PLATELET ESTIMATE NORMAL; POLYCHROMASIA 3+ (0-0); PROMYELOCYTES #M 0.2 10^3/ul (0-0); PROMYELOCYTES % (M) 1 % (0-0); SEG NEUT #M 22.2 10^3/ul (1.6-7.5); SEGMENTED NEUTROPHILS (M) % 81 % (39-77); SMUDGE%M 4 % (0-0)
[2018-05-12] MEDS: SOD CHLORIDE 0.9% 1,000 ML IV (10:22)
[2018-05-12 14:03] LABS: ADD UMIC YES; UR AMORPHOUS CRYSTAL FEW /HPF (NONE SEEN); UR ASCORBIC ACID NEGATIVE (NEGATIVE); UR BACTERIA FEW /HPF (NONE SEEN); UR BILIRUBIN (Dip) NEGATIVE (NEGATIVE); UR BLOOD (Dip) 3+ mg/dL (NEGATIVE); UR CLARITY TURBID (CLEAR); UR COLOR AMBER (YELLOW); UR GLUCOSE (Dip) 1+ mg/dL (NEGATIVE); UR KETONES (Dip) TRACE mg/dL (NEGATIVE); UR LEUKOCYTE ESTERASE (Dip) TRACE Leu/ul (NEGATIVE); UR MUCUS FEW /HPF (NONE SEEN); UR NITRITE (Dip) NEGATIVE (NEGATIVE); UR RBC > 182 /HPF (0-5); UR SQUAMOUS EPITHELIAL CELL FEW /HPF (FEW); UR TOTAL PROTEIN (Dip) 2+ mg/dl (NEGATIVE); UR UROBILINOGEN (Dip) NEGATIVE (NEGATIVE); UR WBC 40 /HPF (0-5)
[2018-05-12 14:13] LABS: SODIUM,URINE RANDOM 22 mmol/L (30-90)
[2018-05-12 14:26] LABS: CREATININE,URINE RANDOM 281.97 mg/dl (20-370)
[2018-05-12] MEDS: LIDOCAINE 1% (MPF) 5 ML VIAL SC (15:00)
[2018-05-12 15:01] LABS: ANION GAP 13 (8-16); BLOOD UREA NITROGEN 86 mg/dl (7-20); CALCIUM 8.9 mg/dl (8.4-10.2); CARBON DIOXIDE 32 mmol/L (21-31); CHLORIDE 116 mmol/L (97-110); CREATININE 3.25 mg/dl (0.61-1.24); GLUCOSE 162 mg/dl (70-220); POTASSIUM 3.7 mmol/L (3.5-5.1); SODIUM 157 mmol/L (135-144)
[2018-05-12] MEDS: SOD CHLORIDE 0.9% 100 ML (15:10)
[2018-05-12] MEDS: CIPROFLOXACIN 400MG/D5W 200 ML IVPB (16:58)
[2018-05-12] MEDS: FAT EMULSION 20% 250 ML IV (20:43)
[2018-05-12] MEDS: ATORVASTATIN 20 MG TAB PO (20:45)
[2018-05-12] MEDS: TPN 1,000 ML IV ×3 (20:58→21:13)
[2018-05-12] MEDS: MEROPENEM 500MG/50 ML (PMX) 50 ML IVPB (20:58)
[2018-05-13] MEDS: VANCOMYCIN 1.5 GM in SOD CHLORIDE 0.9% 250 ML IVPB (00:10)
[2018-05-13] MEDS: METOCLOPRAMIDE 10 MG INJ IV ×4 (00:10→18:31)
[2018-05-13] MEDS: Insulin NOVOLOG SS MILD Algorithm (NPO/TPN/ENTERAL FEEDS) SC ×3 (01:37→09:07)
[2018-05-13] MEDS: ACCU-CHEK XX ×16 (01:38→23:03)
[2018-05-13] MEDS: TPN 1,000 ML IV ×2 (02:36→10:44)
[2018-05-13] MEDS: SOD CHLORIDE 0.45% 1,000 ML IV ×3 (03:10→14:37)
[2018-05-13 06:32] LABS: ANION GAP 15 (8-16); BLOOD UREA NITROGEN 106 mg/dl (7-20); CALCIUM 7.9 mg/dl (8.4-10.2); CARBON DIOXIDE 27 mmol/L (21-31); CHLORIDE 114 mmol/L (97-110); GLUCOSE 344 mg/dl (70-220); MAGNESIUM 2.9 mg/dl (1.7-2.5); PHOSPHORUS 4.8 mg/dl (2.5-4.9); POTASSIUM 3.9 mmol/L (3.5-5.1); SODIUM 152 mmol/L (135-144)
[2018-05-13] MEDS: INSULIN ASPART [NOVOLOG] 3 ML PEN SC (07:35)
[2018-05-13] MEDS: ASPIRIN 81 MG TAB PO (09:08)
[2018-05-13] MEDS: MEROPENEM 500MG/50 ML (PMX) 50 ML IVPB ×2 (09:08→20:57)
[2018-05-13] MEDS: CLOPIDOGREL 75 MG TAB PO (09:08)
[2018-05-13] MEDS: METOPROLOL 25 MG TAB NGT ×2 (09:13→20:56)
[2018-05-13] MEDS: NEOMYC/POLYMYX/BACIT 0.9 GM OINT TOP (09:46)
[2018-05-13 10:30] LABS: ADD MAN DIFF? NO
[2018-05-13] MEDS ORDERED: DEXTROSE 50% 50 ML SYRINGE IV ×2 (10:30)
[2018-05-13 10:32] LABS: BASOPHIL # 0.1 10^3/ul (0.0-0.1); BASOPHILS % 0.4 % (0.0-2.0); EOSINOPHILS # 0.3 10^3/ul (0.0-0.5); EOSINOPHILS % 1.3 % (0.0-7.0); HEMATOCRIT 36.2 % (42.0-52.0); HEMOGLOBIN 11.7 g/dl (14.0-18.0); LYMPHOCYTES # 1.8 10^3/ul (0.8-2.9); LYMPHOCYTES % 8.1 % (15.0-51.0); MEAN CORPUSCULAR HEMOGLOBIN 30.7 pg (29.0-33.0); MEAN CORPUSCULAR HGB CONC 32.3 g/dl (32.0-37.0); MEAN PLATELET VOLUME 10.1 fl (7.4-10.4); MONOCYTE # 1.3 10^3/ul (0.3-0.9); MONOCYTES % 5.8 % (0.0-11.0); NEUTROPHIL # 18.4 10^3/ul (1.6-7.5); NEUTROPHILS % 82.7 % (39.0-77.0); PLATELET COUNT 313 10^3/UL (140-415); RED BLOOD COUNT 3.81 10^6/ul (4.70-6.10); RED CELL DISTRIBUTION WIDTH 14.6 % (11.5-14.5)
[2018-05-13 10:32] LABS: WHITE BLOOD COUNT 22.3 10^3/ul (4.8-10.8)
[2018-05-13] MEDS: INSULIN HUMAN REGULAR 100 UNIT in SOD CHLORIDE 0.9% 99 ML IV (11:23)
[2018-05-13] MEDS ORDERED: VANCOMYCIN 1.25 GM in SOD CHLORIDE 0.9% 250 ML IVPB (12:00)
[2018-05-13 15:03] LABS: ANION GAP 10 (8-16); BLOOD UREA NITROGEN 105 mg/dl (7-20); CARBON DIOXIDE 29 mmol/L (21-31); CHLORIDE 115 mmol/L (97-110); CREATININE 2.68 mg/dl (0.61-1.24); GLUCOSE 300 mg/dl (70-220); POTASSIUM 3.3 mmol/L (3.5-5.1); SODIUM 151 mmol/L (135-144)
[2018-05-13] MEDS: POTASSIUM CHLORIDE 50 ML IVPB ×2 (17:31→20:57)
[2018-05-13] MEDS: ATORVASTATIN 20 MG TAB PO (20:56)
[2018-05-14] MEDS: ACCU-CHEK XX ×17 (00:04→15:57)
[2018-05-14] MEDS: METOCLOPRAMIDE 10 MG INJ IV (00:09)
[2018-05-14] MEDS: TPN 1,000 ML IV ×2 (00:10→14:02)
[2018-05-14] MEDS: INSULIN HUMAN REGULAR 100 UNIT in SOD CHLORIDE 0.9% 99 ML IV (00:11)
[2018-05-14] MEDS: SOD CHLORIDE 0.45% 1,000 ML IV ×4 (01:04→17:16)
[2018-05-14 05:28] LABS: ADD MAN DIFF? NO
[2018-05-14 05:36] LABS: BASOPHIL # 0.1 10^3/ul (0.0-0.1); BASOPHILS % 0.4 % (0.0-2.0); EOSINOPHILS # 0.5 10^3/ul (0.0-0.5); EOSINOPHILS % 3.1 % (0.0-7.0); HEMATOCRIT 36.2 % (42.0-52.0); HEMOGLOBIN 11.4 g/dl (14.0-18.0); LYMPHOCYTES # 1.8 10^3/ul (0.8-2.9); LYMPHOCYTES % 10.5 % (15.0-51.0); MEAN CORPUSCULAR HEMOGLOBIN 29.9 pg (29.0-33.0); MEAN CORPUSCULAR HGB CONC 31.5 g/dl (32.0-37.0); MEAN PLATELET VOLUME 10.8 fl (7.4-10.4); NEUTROPHIL # 13.1 10^3/ul (1.6-7.5); NEUTROPHILS % 78.4 % (39.0-77.0); PLATELET COUNT 308 10^3/UL (140-415); RED BLOOD COUNT 3.81 10^6/ul (4.70-6.10); RED CELL DISTRIBUTION WIDTH 14.5 % (11.5-14.5)
[2018-05-14 05:36] LABS: WHITE BLOOD COUNT 16.7 10^3/ul (4.8-10.8)
[2018-05-14 06:09] LABS: ANION GAP 10 (8-16); BLOOD UREA NITROGEN 85 mg/dl (7-20); CALCIUM 8.2 mg/dl (8.4-10.2); CARBON DIOXIDE 29 mmol/L (21-31); CHLORIDE 119 mmol/L (97-110); CREATININE 2.02 mg/dl (0.61-1.24); GLUCOSE 165 mg/dl (70-220); MAGNESIUM 2.8 mg/dl (1.7-2.5); PHOSPHORUS 3.3 mg/dl (2.5-4.9); POTASSIUM 3.3 mmol/L (3.5-5.1); SODIUM 155 mmol/L (135-144)
[2018-05-14] MEDS: METOPROLOL 25 MG TAB NGT ×2 (08:20→20:36)
[2018-05-14] MEDS: ASPIRIN 81 MG TAB PO (08:20)
[2018-05-14] MEDS: CLOPIDOGREL 75 MG TAB PO (08:20)
[2018-05-14] MEDS: MEROPENEM 500MG/50 ML (PMX) 50 ML IVPB ×2 (08:20→20:35)
[2018-05-14] MEDS: NEOMYC/POLYMYX/BACIT 0.9 GM OINT TOP (08:21)
[2018-05-14] MEDS: POTASSIUM CHLORIDE 100 ML IVPB (08:57)
[2018-05-14 10:28] LABS: ADD UMIC YES; UR ASCORBIC ACID NEGATIVE (NEGATIVE); UR BACTERIA FEW /HPF (NONE SEEN); UR BILIRUBIN (Dip) NEGATIVE (NEGATIVE); UR BLOOD (Dip) 3+ mg/dL (NEGATIVE); UR BUDDING YEAST MODERATE /HPF (NONE SEEN); UR CALCIUM OXALATE CRYSTAL MANY /HPF (NONE SEEN); UR CLARITY TURBID (CLEAR); UR COLOR YELLOW (YELLOW); UR GLUCOSE (Dip) NEGATIVE (NEGATIVE); UR KETONES (Dip) NEGATIVE (NEGATIVE); UR LEUKOCYTE ESTERASE (Dip) NEGATIVE Leu/ul (NEGATIVE); UR MUCUS FEW /HPF (NONE SEEN); UR NITRITE (Dip) NEGATIVE (NEGATIVE); UR RBC 49 /HPF (0-5); UR SPECIFIC GRAVITY (Dip) 1.014 (1.003-1.030); UR TOTAL PROTEIN (Dip) 2+ mg/dl (NEGATIVE); UR UROBILINOGEN (Dip) NEGATIVE (NEGATIVE); UR WBC 0 /HPF (0-5)
[2018-05-14 10:37] LABS: SODIUM,URINE RANDOM 25 mmol/L (30-90)
[2018-05-14 10:37] LABS: CREATININE,URINE RANDOM 68.33 mg/dl (20-370)
[2018-05-14 11:35] LABS: OSMOLALITY,URINE 485 mOsm/kg (250-1200)
[2018-05-14 14:53] LABS: ANION GAP 10 (8-16); BLOOD UREA NITROGEN 67 mg/dl (7-20); CALCIUM 8.4 mg/dl (8.4-10.2); CARBON DIOXIDE 26 mmol/L (21-31); CHLORIDE 121 mmol/L (97-110); CREATININE 1.67 mg/dl (0.61-1.24); GLUCOSE 183 mg/dl (70-220); POTASSIUM 3.4 mmol/L (3.5-5.1); SODIUM 154 mmol/L (135-144)
[2018-05-14] MEDS ORDERED: GLUCOSE GEL 15 GRAM TUBE BUCCAL (17:00)
[2018-05-14] MEDS ORDERED: GLUCOSE GEL 15 GRAM TUBE PO ×2 (17:00)
[2018-05-14] MEDS ORDERED: GLUCAGON 1 MG INJ IM (17:00)
[2018-05-14] MEDS ORDERED: DEXTROSE 50% 50 ML SYRINGE IV (17:00)
[2018-05-14 17:06] LABS: CREATININE, RANDOM URINE 287 mg/dL (20-370); MICROALBUMIN 98.5 mg/dL; MICROALBUMIN/CREATININE RATIO 343 (<30)
[2018-05-14] MEDS: INSULIN ASPART [NOVOLOG] 3 ML PEN SC ×2 (18:23→20:35)
[2018-05-14] MEDS: INSULIN GLARGINE [LANTus] (100 UNITS/ML) SYG SC (20:34)
[2018-05-14] MEDS: ATORVASTATIN 20 MG TAB PO (20:35)
[2018-05-14 20:40] LABS: ANION GAP 11 (8-16); BLOOD UREA NITROGEN 62 mg/dl (7-20); CALCIUM 8.4 mg/dl (8.4-10.2); CARBON DIOXIDE 26 mmol/L (21-31); CHLORIDE 120 mmol/L (97-110); CREATININE 1.69 mg/dl (0.61-1.24); GLUCOSE 260 mg/dl (70-220); MAGNESIUM 2.6 mg/dl (1.7-2.5); POTASSIUM 4.1 mmol/L (3.5-5.1); SODIUM 153 mmol/L (135-144)
[2018-05-15 01:02] LABS: ADD UMIC YES; UR AMORPHOUS CRYSTAL FEW /HPF (NONE SEEN); UR ASCORBIC ACID NEGATIVE (NEGATIVE); UR BACTERIA FEW /HPF (NONE SEEN); UR BILIRUBIN (Dip) NEGATIVE (NEGATIVE); UR BLOOD (Dip) 2+ mg/dL (NEGATIVE); UR BUDDING YEAST FEW /HPF (NONE SEEN); UR CLARITY CLOUDY (CLEAR); UR COLOR YELLOW (YELLOW); UR GLUCOSE (Dip) 1+ mg/dL (NEGATIVE); UR KETONES (Dip) TRACE mg/dL (NEGATIVE); UR LEUKOCYTE ESTERASE (Dip) NEGATIVE Leu/ul (NEGATIVE); UR NITRITE (Dip) NEGATIVE (NEGATIVE); UR RBC 2 /HPF (0-5); UR SPECIFIC GRAVITY (Dip) 1.014 (1.003-1.030); UR TOTAL PROTEIN (Dip) 2+ mg/dl (NEGATIVE); UR UROBILINOGEN (Dip) NEGATIVE (NEGATIVE); UR WBC 2 /HPF (0-5)
[2018-05-15] MEDS: ACCU-CHEK XX ×2 (02:39→22:40)
[2018-05-15] MEDS: INSULIN ASPART [NOVOLOG] 3 ML PEN SC ×5 (03:12→20:38)
[2018-05-15 05:10] LABS: ADD MAN DIFF? NO
[2018-05-15 05:15] LABS: WHITE BLOOD COUNT 14.2 10^3/ul (4.8-10.8)
[2018-05-15 05:15] LABS: BASOPHIL # 0.1 10^3/ul (0.0-0.1); BASOPHILS % 0.5 % (0.0-2.0); EOSINOPHILS # 0.4 10^3/ul (0.0-0.5); EOSINOPHILS % 2.5 % (0.0-7.0); HEMATOCRIT 36.2 % (42.0-52.0); HEMOGLOBIN 11.5 g/dl (14.0-18.0); LYMPHOCYTES # 1.9 10^3/ul (0.8-2.9); LYMPHOCYTES % 13.1 % (15.0-51.0); MEAN CORPUSCULAR HEMOGLOBIN 30.3 pg (29.0-33.0); MEAN CORPUSCULAR HGB CONC 31.8 g/dl (32.0-37.0); MEAN CORPUSCULAR VOLUME 95.5 fl (82.0-101.0); MEAN PLATELET VOLUME 10.7 fl (7.4-10.4); MONOCYTE # 0.7 10^3/ul (0.3-0.9); MONOCYTES % 5.1 % (0.0-11.0); NEUTROPHIL # 11.1 10^3/ul (1.6-7.5); PLATELET COUNT 269 10^3/UL (140-415); RED BLOOD COUNT 3.79 10^6/ul (4.70-6.10); RED CELL DISTRIBUTION WIDTH 14.5 % (11.5-14.5)
[2018-05-15 05:35] LABS: ANION GAP 6 (8-16); BLOOD UREA NITROGEN 62 mg/dl (7-20); CALCIUM 8.6 mg/dl (8.4-10.2); CARBON DIOXIDE 30 mmol/L (21-31); CHLORIDE 123 mmol/L (97-110); CREATININE 1.62 mg/dl (0.61-1.24); GLUCOSE 262 mg/dl (70-220); MAGNESIUM 2.7 mg/dl (1.7-2.5); PHOSPHORUS 3.1 mg/dl (2.5-4.9); POTASSIUM 4.1 mmol/L (3.5-5.1); SODIUM 155 mmol/L (135-144)
[2018-05-15] MEDS: ASPIRIN 81 MG TAB PO (08:43)
[2018-05-15] MEDS: CLOPIDOGREL 75 MG TAB PO (08:43)
[2018-05-15] MEDS: MEROPENEM 500MG/50 ML (PMX) 50 ML IVPB (08:43)
[2018-05-15] MEDS: METOPROLOL 25 MG TAB NGT ×2 (08:44→22:40)
[2018-05-15] MEDS: SOD CHLORIDE 0.45% 1,000 ML IV (13:33)
[2018-05-15 14:31] LABS: ANION GAP 8 (8-16); BLOOD UREA NITROGEN 49 mg/dl (7-20); CALCIUM 8.7 mg/dl (8.4-10.2); CARBON DIOXIDE 28 mmol/L (21-31); CHLORIDE 122 mmol/L (97-110); CREATININE 1.47 mg/dl (0.61-1.24); GLUCOSE 269 mg/dl (70-220); POTASSIUM 3.8 mmol/L (3.5-5.1); SODIUM 154 mmol/L (135-144)
[2018-05-15 14:32] LABS: CREATININE, RANDOM URINE 78 mg/dL (20-370); MICROALBUMIN 24.5 mg/dL; MICROALBUMIN/CREATININE RATIO 314 (<30)
[2018-05-15] MEDS: INSULIN GLARGINE [LANTus] (100 UNITS/ML) SYG SC (20:39)
[2018-05-15] MEDS: ATORVASTATIN 20 MG TAB PO (22:40)
[2018-05-15] MEDS: TAMSULOSIN (SR) 0.4 MG CAP PO (22:40)
[2018-05-16] MEDS: LORAZEPAM 2 MG INJ IV (01:28)
[2018-05-16] MEDS: INSULIN ASPART [NOVOLOG] 3 ML PEN SC ×4 (07:59→20:37)
[2018-05-16] MEDS: SOD CHLORIDE 0.45% 1,000 ML IV ×2 (08:29→15:18)
[2018-05-16] MEDS: CLOPIDOGREL 75 MG TAB PO (08:31)
[2018-05-16] MEDS: METOPROLOL 25 MG TAB NGT ×2 (08:31→20:39)
[2018-05-16] MEDS: ASPIRIN 81 MG TAB PO (08:31)
[2018-05-16 10:22] LABS: ADD MAN DIFF? NO
[2018-05-16 10:24] LABS: BASOPHIL # 0.1 10^3/ul (0.0-0.1); BASOPHILS % 0.4 % (0.0-2.0); EOSINOPHILS # 0.3 10^3/ul (0.0-0.5); EOSINOPHILS % 2.7 % (0.0-7.0); HEMATOCRIT 36.1 % (42.0-52.0); HEMOGLOBIN 11.3 g/dl (14.0-18.0); LYMPHOCYTES # 1.8 10^3/ul (0.8-2.9); LYMPHOCYTES % 14.7 % (15.0-51.0); MEAN CORPUSCULAR HEMOGLOBIN 30.1 pg (29.0-33.0); MEAN CORPUSCULAR HGB CONC 31.3 g/dl (32.0-37.0); MEAN PLATELET VOLUME 10.8 fl (7.4-10.4); MONOCYTE # 0.7 10^3/ul (0.3-0.9); MONOCYTES % 5.5 % (0.0-11.0); NEUTROPHIL # 9.2 10^3/ul (1.6-7.5); PLATELET COUNT 258 10^3/UL (140-415); RED BLOOD COUNT 3.76 10^6/ul (4.70-6.10); RED CELL DISTRIBUTION WIDTH 14.4 % (11.5-14.5)
[2018-05-16 10:24] LABS: WHITE BLOOD COUNT 12.1 10^3/ul (4.8-10.8)
[2018-05-16 10:47] LABS: ANION GAP 6 (8-16); BLOOD UREA NITROGEN 40 mg/dl (7-20); CALCIUM 8.7 mg/dl (8.4-10.2); CARBON DIOXIDE 28 mmol/L (21-31); CHLORIDE 123 mmol/L (97-110); CREATININE 1.49 mg/dl (0.61-1.24); GLUCOSE 241 mg/dl (70-220); MAGNESIUM 2.6 mg/dl (1.7-2.5); PHOSPHORUS 3.3 mg/dl (2.5-4.9); SODIUM 153 mmol/L (135-144)
[2018-05-16] MEDS: FLUCONAZOLE 200 MG TAB PO (15:17)
[2018-05-16 15:44] LABS: ANION GAP 7 (8-16); BLOOD UREA NITROGEN 40 mg/dl (7-20); CALCIUM 8.8 mg/dl (8.4-10.2); CARBON DIOXIDE 29 mmol/L (21-31); CHLORIDE 125 mmol/L (97-110); CREATININE 1.33 mg/dl (0.61-1.24); GLUCOSE 204 mg/dl (70-220); POTASSIUM 3.9 mmol/L (3.5-5.1); SODIUM 157 mmol/L (135-144)
[2018-05-16] MEDS ORDERED: INSULIN GLARGINE [LANTus] (100 UNITS/ML) SYG SC (20:00)
[2018-05-16] MEDS: INSULIN GLARGINE [LANTus] (100 UNITS/ML) SYG SC (20:37)
[2018-05-16] MEDS: TAMSULOSIN (SR) 0.4 MG CAP PO (20:38)
[2018-05-16] MEDS: ATORVASTATIN 20 MG TAB PO (20:38)
[2018-05-16] MEDS: ACCU-CHEK XX (20:39)
[2018-05-17] MEDS: LORAZEPAM 2 MG INJ IV (01:48)
[2018-05-17 05:50] LABS: ADD MAN DIFF? NO
[2018-05-17 05:57] LABS: WHITE BLOOD COUNT 12.9 10^3/ul (4.8-10.8)
[2018-05-17 05:57] LABS: BASOPHIL # 0.1 10^3/ul (0.0-0.1); BASOPHILS % 0.6 % (0.0-2.0); EOSINOPHILS # 0.3 10^3/ul (0.0-0.5); EOSINOPHILS % 2.6 % (0.0-7.0); HEMATOCRIT 37.9 % (42.0-52.0); HEMOGLOBIN 11.8 g/dl (14.0-18.0); LYMPHOCYTES # 1.8 10^3/ul (0.8-2.9); LYMPHOCYTES % 13.6 % (15.0-51.0); MEAN CORPUSCULAR HEMOGLOBIN 30.2 pg (29.0-33.0); MEAN CORPUSCULAR HGB CONC 31.1 g/dl (32.0-37.0); MEAN CORPUSCULAR VOLUME 96.9 fl (82.0-101.0); MEAN PLATELET VOLUME 11.1 fl (7.4-10.4); MONOCYTE # 0.7 10^3/ul (0.3-0.9); MONOCYTES % 5.1 % (0.0-11.0); NEUTROPHILS % 77.6 % (39.0-77.0); PLATELET COUNT 248 10^3/UL (140-415); RED BLOOD COUNT 3.91 10^6/ul (4.70-6.10); RED CELL DISTRIBUTION WIDTH 14.4 % (11.5-14.5)
[2018-05-17 06:23] LABS: ANION GAP 8 (8-16); BLOOD UREA NITROGEN 32 mg/dl (7-20); CALCIUM 8.9 mg/dl (8.4-10.2); CARBON DIOXIDE 29 mmol/L (21-31); CHLORIDE 127 mmol/L (97-110); CREATININE 1.35 mg/dl (0.61-1.24); GLUCOSE 187 mg/dl (70-220); MAGNESIUM 2.4 mg/dl (1.7-2.5); PHOSPHORUS 3.8 mg/dl (2.5-4.9); POTASSIUM 3.9 mmol/L (3.5-5.1); SODIUM 160 mmol/L (135-144)
[2018-05-17] MEDS: CLOPIDOGREL 75 MG TAB PO (08:09)
[2018-05-17] MEDS: ASPIRIN 81 MG TAB PO (08:09)
[2018-05-17] MEDS: DEXTROSE 5% 1,000 ML IV ×3 (08:09→22:06)
[2018-05-17] MEDS: METOPROLOL 25 MG TAB NGT ×2 (08:10→20:29)
[2018-05-17] MEDS: INSULIN ASPART [NOVOLOG] 3 ML PEN SC ×4 (08:11→20:25)
[2018-05-17 14:01] LABS: OSMOLALITY,URINE 557 mOsm/kg (250-1200)
[2018-05-17 14:13] LABS: ANION GAP 9 (8-16); BLOOD UREA NITROGEN 30 mg/dl (7-20); CALCIUM 8.6 mg/dl (8.4-10.2); CARBON DIOXIDE 26 mmol/L (21-31); CHLORIDE 122 mmol/L (97-110); CREATININE 1.26 mg/dl (0.61-1.24); GLUCOSE 304 mg/dl (70-220); POTASSIUM 3.8 mmol/L (3.5-5.1); SODIUM 153 mmol/L (135-144)
[2018-05-17] MEDS: INSULIN GLARGINE [LANTus] (100 UNITS/ML) SYG SC (20:27)
[2018-05-17] MEDS: ATORVASTATIN 20 MG TAB PO (20:27)
[2018-05-17] MEDS: TAMSULOSIN (SR) 0.4 MG CAP PO (20:28)
[2018-05-18] MEDS: ACCU-CHEK XX (02:32)
[2018-05-18 06:19] LABS: ADD MAN DIFF? NO
[2018-05-18 06:23] LABS: WHITE BLOOD COUNT 13.4 10^3/ul (4.8-10.8)
[2018-05-18 06:23] LABS: BASOPHIL # 0.1 10^3/ul (0.0-0.1); BASOPHILS % 0.4 % (0.0-2.0); EOSINOPHILS # 0.4 10^3/ul (0.0-0.5); HEMATOCRIT 36.6 % (42.0-52.0); HEMOGLOBIN 11.6 g/dl (14.0-18.0); LYMPHOCYTES # 1.7 10^3/ul (0.8-2.9); LYMPHOCYTES % 12.4 % (15.0-51.0); MEAN CORPUSCULAR HEMOGLOBIN 29.4 pg (29.0-33.0); MEAN CORPUSCULAR HGB CONC 31.7 g/dl (32.0-37.0); MEAN CORPUSCULAR VOLUME 92.9 fl (82.0-101.0); MEAN PLATELET VOLUME 11.4 fl (7.4-10.4); MONOCYTE # 0.7 10^3/ul (0.3-0.9); MONOCYTES % 4.9 % (0.0-11.0); NEUTROPHIL # 10.6 10^3/ul (1.6-7.5); NEUTROPHILS % 78.8 % (39.0-77.0); PLATELET COUNT 265 10^3/UL (140-415); RED BLOOD COUNT 3.94 10^6/ul (4.70-6.10)
[2018-05-18 06:50] LABS: PREALBUMIN 11.9 mg/dl (17.6-36.0)
[2018-05-18 07:01] LABS: ANION GAP 9 (8-16); BLOOD UREA NITROGEN 22 mg/dl (7-20); CALCIUM 8.8 mg/dl (8.4-10.2); CARBON DIOXIDE 28 mmol/L (21-31); CHLORIDE 118 mmol/L (97-110); CREATININE 1.19 mg/dl (0.61-1.24); GLUCOSE 230 mg/dl (70-220); PHOSPHORUS 3.8 mg/dl (2.5-4.9); POTASSIUM 3.3 mmol/L (3.5-5.1); SODIUM 152 mmol/L (135-144)
[2018-05-18] MEDS: INSULIN ASPART [NOVOLOG] 3 ML PEN SC ×4 (07:49→21:03)
[2018-05-18] MEDS: POTASSIUM CHLORIDE (SR) 20 MEQ TAB PO (08:31)
[2018-05-18] MEDS: CLOPIDOGREL 75 MG TAB PO (08:31)
[2018-05-18] MEDS: ASPIRIN 81 MG TAB PO (08:31)
[2018-05-18] MEDS: METOPROLOL 25 MG TAB NGT ×2 (08:32→21:00)
[2018-05-18] MEDS: DEXTROSE 5% 1,000 ML IV ×2 (11:54→23:05)
[2018-05-18] MEDS: INSULIN GLARGINE [LANTus] (100 UNITS/ML) SYG SC (20:59)
[2018-05-18] MEDS: ATORVASTATIN 20 MG TAB PO (21:01)
[2018-05-18] MEDS: TAMSULOSIN (SR) 0.4 MG CAP PO (21:01)
[2018-05-18] MEDS: ACETAMINOPHEN 650MG/20.3ML CUP PO (23:19)
[2018-05-19] MEDS: ACCU-CHEK XX (02:00)
[2018-05-19 05:49] LABS: ADD MAN DIFF? NO
[2018-05-19 05:56] LABS: WHITE BLOOD COUNT 12.5 10^3/ul (4.8-10.8)
[2018-05-19 05:56] LABS: BASOPHIL # 0.1 10^3/ul (0.0-0.1); BASOPHILS % 0.5 % (0.0-2.0); EOSINOPHILS # 0.3 10^3/ul (0.0-0.5); EOSINOPHILS % 2.6 % (0.0-7.0); HEMOGLOBIN 11.2 g/dl (14.0-18.0); LYMPHOCYTES # 1.5 10^3/ul (0.8-2.9); LYMPHOCYTES % 11.6 % (15.0-51.0); MEAN CORPUSCULAR HEMOGLOBIN 30.1 pg (29.0-33.0); MEAN CORPUSCULAR HGB CONC 32.9 g/dl (32.0-37.0); MEAN CORPUSCULAR VOLUME 91.4 fl (82.0-101.0); MEAN PLATELET VOLUME 11.3 fl (7.4-10.4); MONOCYTE # 0.7 10^3/ul (0.3-0.9); MONOCYTES % 5.7 % (0.0-11.0); NEUTROPHIL # 9.9 10^3/ul (1.6-7.5); PLATELET COUNT 269 10^3/UL (140-415); RED BLOOD COUNT 3.72 10^6/ul (4.70-6.10); RED CELL DISTRIBUTION WIDTH 13.5 % (11.5-14.5)
[2018-05-19 06:29] LABS: ANION GAP 9 (8-16); BLOOD UREA NITROGEN 17 mg/dl (7-20); CALCIUM 8.4 mg/dl (8.4-10.2); CARBON DIOXIDE 26 mmol/L (21-31); CHLORIDE 110 mmol/L (97-110); CREATININE 1.11 mg/dl (0.61-1.24); GLUCOSE 221 mg/dl (70-220); MAGNESIUM 1.8 mg/dl (1.7-2.5); POTASSIUM 3.2 mmol/L (3.5-5.1); SODIUM 142 mmol/L (135-144)
[2018-05-19] MEDS: POTASSIUM CHLORIDE (SR) 20 MEQ TAB PO (09:42)
[2018-05-19] MEDS: ASPIRIN 81 MG TAB PO (09:42)
[2018-05-19] MEDS: DEXTROSE 5% 1,000 ML IV (09:42)
[2018-05-19] MEDS: CLOPIDOGREL 75 MG TAB PO (09:42)
[2018-05-19] MEDS: METOPROLOL 25 MG TAB NGT ×2 (09:43→20:35)
[2018-05-19] MEDS: INSULIN ASPART [NOVOLOG] 3 ML PEN SC ×4 (09:44→20:32)
[2018-05-19] MEDS: INSULIN GLARGINE [LANTus] (100 UNITS/ML) SYG SC (20:31)
[2018-05-19] MEDS: ATORVASTATIN 20 MG TAB PO (20:34)
[2018-05-19] MEDS: TAMSULOSIN (SR) 0.4 MG CAP PO (20:35)
[2018-05-20] MEDS: ACCU-CHEK XX (01:58)
[2018-05-20 06:10] LABS: ADD MAN DIFF? NO
[2018-05-20 06:31] LABS: BASOPHILS % 0.4 % (0.0-2.0); EOSINOPHILS # 0.3 10^3/ul (0.0-0.5); EOSINOPHILS % 2.7 % (0.0-7.0); HEMATOCRIT 36.8 % (42.0-52.0); HEMOGLOBIN 12.2 g/dl (14.0-18.0); LYMPHOCYTES # 1.3 10^3/ul (0.8-2.9); LYMPHOCYTES % 12.1 % (15.0-51.0); MEAN CORPUSCULAR HEMOGLOBIN 29.1 pg (29.0-33.0); MEAN CORPUSCULAR HGB CONC 33.2 g/dl (32.0-37.0); MEAN CORPUSCULAR VOLUME 87.8 fl (82.0-101.0); MEAN PLATELET VOLUME 11.5 fl (7.4-10.4); MONOCYTE # 0.5 10^3/ul (0.3-0.9); MONOCYTES % 4.4 % (0.0-11.0); NEUTROPHIL # 8.4 10^3/ul (1.6-7.5); NEUTROPHILS % 79.9 % (39.0-77.0); PLATELET COUNT 255 10^3/UL (140-415); POSITIVE DIFF @See below; RED BLOOD COUNT 4.19 10^6/ul (4.70-6.10); RED CELL DISTRIBUTION WIDTH 13.5 % (11.5-14.5)
[2018-05-20 06:31] LABS: WHITE BLOOD COUNT 10.6 10^3/ul (4.8-10.8)
[2018-05-20 06:43] LABS: ANION GAP 11 (8-16); BLOOD UREA NITROGEN 13 mg/dl (7-20); CALCIUM 8.3 mg/dl (8.4-10.2); CARBON DIOXIDE 23 mmol/L (21-31); CHLORIDE 108 mmol/L (97-110); GLUCOSE 227 mg/dl (70-220); MAGNESIUM 1.7 mg/dl (1.7-2.5); PHOSPHORUS 3.2 mg/dl (2.5-4.9); POTASSIUM 3.6 mmol/L (3.5-5.1); SODIUM 138 mmol/L (135-144)
[2018-05-20] MEDS: CLOPIDOGREL 75 MG TAB PO (08:34)
[2018-05-20] MEDS: ASPIRIN 81 MG TAB PO (08:34)
[2018-05-20] MEDS: INSULIN ASPART [NOVOLOG] 3 ML PEN SC ×4 (08:34→23:08)
[2018-05-20] MEDS: METOPROLOL 25 MG TAB NGT ×2 (08:35→23:15)
[2018-05-20] MEDS: TAMSULOSIN (SR) 0.4 MG CAP PO (23:09)
[2018-05-20] MEDS: ATORVASTATIN 20 MG TAB PO (23:09)
[2018-05-20] MEDS: INSULIN GLARGINE [LANTus] (100 UNITS/ML) SYG SC (23:19)
[2018-05-21] MEDS: ACCU-CHEK XX (02:00)
[2018-05-21] MEDS: INSULIN ASPART [NOVOLOG] 3 ML PEN SC ×4 (08:00→19:49)
[2018-05-21 09:01] LABS: ADD MAN DIFF? NO
[2018-05-21] MEDS: DEXTROSE 50% 50 ML SYRINGE IV (09:05)
[2018-05-21 09:06] LABS: WHITE BLOOD COUNT 10.3 10^3/ul (4.8-10.8)
[2018-05-21 09:06] LABS: BASOPHIL # 0.1 10^3/ul (0.0-0.1); BASOPHILS % 0.5 % (0.0-2.0); EOSINOPHILS # 0.2 10^3/ul (0.0-0.5); EOSINOPHILS % 2.3 % (0.0-7.0); HEMATOCRIT 35.1 % (42.0-52.0); HEMOGLOBIN 11.7 g/dl (14.0-18.0); LYMPHOCYTES # 1.7 10^3/ul (0.8-2.9); LYMPHOCYTES % 16.9 % (15.0-51.0); MEAN CORPUSCULAR HEMOGLOBIN 29.9 pg (29.0-33.0); MEAN CORPUSCULAR HGB CONC 33.3 g/dl (32.0-37.0); MEAN CORPUSCULAR VOLUME 89.8 fl (82.0-101.0); MEAN PLATELET VOLUME 10.9 fl (7.4-10.4); MONOCYTE # 0.8 10^3/ul (0.3-0.9); MONOCYTES % 7.5 % (0.0-11.0); NEUTROPHIL # 7.5 10^3/ul (1.6-7.5); NEUTROPHILS % 72.3 % (39.0-77.0); PLATELET COUNT 331 10^3/UL (140-415); RED BLOOD COUNT 3.91 10^6/ul (4.70-6.10); RED CELL DISTRIBUTION WIDTH 13.6 % (11.5-14.5)
[2018-05-21] MEDS: CLOPIDOGREL 75 MG TAB PO (09:11)
[2018-05-21] MEDS: ASPIRIN 81 MG TAB PO (09:11)
[2018-05-21] MEDS: METOPROLOL 25 MG TAB NGT ×2 (09:11→21:08)
[2018-05-21] MEDS: LISINOPRIL 5 MG TAB PO (09:11)
[2018-05-21 09:31] LABS: ANION GAP 9 (8-16); BLOOD UREA NITROGEN 12 mg/dl (7-20); CALCIUM 8.6 mg/dl (8.4-10.2); CARBON DIOXIDE 26 mmol/L (21-31); CHLORIDE 108 mmol/L (97-110); CREATININE 0.99 mg/dl (0.61-1.24); MAGNESIUM 1.8 mg/dl (1.7-2.5); PHOSPHORUS 3.1 mg/dl (2.5-4.9); POTASSIUM 3.2 mmol/L (3.5-5.1); SODIUM 140 mmol/L (135-144)
[2018-05-21 09:35] LABS: GLUCOSE 44 mg/dl (70-220)
[2018-05-21] MEDS: INSULIN GLARGINE [LANTus] (100 UNITS/ML) SYG SC (19:43)
[2018-05-21] MEDS: ATORVASTATIN 20 MG TAB PO (21:08)
[2018-05-21] MEDS: TAMSULOSIN (SR) 0.4 MG CAP PO (21:08)
[2018-05-21] MEDS: ACETAMINOPHEN 650MG/20.3ML CUP PO (23:48)
[2018-05-22] MEDS: ACCU-CHEK XX (02:00)
[2018-05-22 05:31] LABS: ADD MAN DIFF? NO
[2018-05-22 05:39] LABS: BASOPHIL # 0.1 10^3/ul (0.0-0.1); BASOPHILS % 0.7 % (0.0-2.0); HEMOGLOBIN 10.3 g/dl (14.0-18.0); LYMPHOCYTES % 20.3 % (15.0-51.0); MONOCYTES % 8.3 % (0.0-11.0); PLATELET COUNT 306 10^3/UL (140-415); RED CELL DISTRIBUTION WIDTH 13.7 % (11.5-14.5)
[2018-05-22 05:50] LABS: EOSINOPHILS # 0.2 10^3/ul (0.0-0.5); EOSINOPHILS % 3.3 % (0.0-7.0); HEMATOCRIT 30.3 % (42.0-52.0); LYMPHOCYTES # 1.4 10^3/ul (0.8-2.9); MEAN CORPUSCULAR HEMOGLOBIN 30.1 pg (29.0-33.0); MEAN CORPUSCULAR VOLUME 88.6 fl (82.0-101.0); MEAN PLATELET VOLUME 11.2 fl (7.4-10.4); MONOCYTE # 0.6 10^3/ul (0.3-0.9); NEUTROPHIL # 4.6 10^3/ul (1.6-7.5); NEUTROPHILS % 66.5 % (39.0-77.0); RED BLOOD COUNT 3.42 10^6/ul (4.70-6.10)
[2018-05-22 06:32] LABS: ANION GAP 9 (8-16); BLOOD UREA NITROGEN 10 mg/dl (7-20); CALCIUM 8.3 mg/dl (8.4-10.2); CARBON DIOXIDE 26 mmol/L (21-31); CHLORIDE 107 mmol/L (97-110); CREATININE 0.93 mg/dl (0.61-1.24); GLUCOSE 204 mg/dl (70-220); MAGNESIUM 1.6 mg/dl (1.7-2.5); PHOSPHORUS 3.5 mg/dl (2.5-4.9); POTASSIUM 3.1 mmol/L (3.5-5.1); SODIUM 139 mmol/L (135-144)
[2018-05-22] MEDS: LISINOPRIL 5 MG TAB PO (08:45)
[2018-05-22] MEDS: INSULIN ASPART [NOVOLOG] 3 ML PEN SC ×4 (08:46→22:35)
[2018-05-22] MEDS: ASPIRIN 81 MG TAB PO (08:48)
[2018-05-22] MEDS: CLOPIDOGREL 75 MG TAB PO (08:48)
[2018-05-22] MEDS: POTASSIUM CHLORIDE (SR) 20 MEQ TAB PO (08:48)
[2018-05-22] MEDS: METOPROLOL 25 MG TAB NGT ×2 (08:49→22:32)
[2018-05-22] MEDS ORDERED: MAGNESIUM SULFATE 2 GM/50 ML 50 ML IVPB (10:30)
[2018-05-22] MEDS: MAGNESIUM SULFATE 1 GM/D5W 100 ML IVPB ×2 (10:43→11:59)
[2018-05-22] MEDS: ATORVASTATIN 20 MG TAB PO (22:32)
[2018-05-22] MEDS: TAMSULOSIN (SR) 0.4 MG CAP PO (22:33)
[2018-05-22] MEDS: INSULIN GLARGINE [LANTus] (100 UNITS/ML) SYG SC (22:34)
[2018-05-23] MEDS: ACETAMINOPHEN 650MG/20.3ML CUP PO ×4 (00:44→16:51)
[2018-05-23] MEDS: ACCU-CHEK XX (02:00)
[2018-05-23 06:56] LABS: ADD MAN DIFF? NO
[2018-05-23 07:04] LABS: WHITE BLOOD COUNT 6.6 10^3/ul (4.8-10.8)
[2018-05-23 07:04] LABS: BASOPHILS % 0.5 % (0.0-2.0); EOSINOPHILS # 0.2 10^3/ul (0.0-0.5); EOSINOPHILS % 2.6 % (0.0-7.0); HEMATOCRIT 27.2 % (42.0-52.0); HEMOGLOBIN 9.2 g/dl (14.0-18.0); LYMPHOCYTES # 1.1 10^3/ul (0.8-2.9); LYMPHOCYTES % 17.3 % (15.0-51.0); MEAN CORPUSCULAR HEMOGLOBIN 29.6 pg (29.0-33.0); MEAN CORPUSCULAR HGB CONC 33.8 g/dl (32.0-37.0); MEAN CORPUSCULAR VOLUME 87.5 fl (82.0-101.0); MEAN PLATELET VOLUME 11.2 fl (7.4-10.4); MONOCYTE # 0.6 10^3/ul (0.3-0.9); MONOCYTES % 8.8 % (0.0-11.0); NEUTROPHIL # 4.6 10^3/ul (1.6-7.5); NEUTROPHILS % 70.2 % (39.0-77.0); PLATELET COUNT 284 10^3/UL (140-415); RED BLOOD COUNT 3.11 10^6/ul (4.70-6.10); RED CELL DISTRIBUTION WIDTH 13.9 % (11.5-14.5)
[2018-05-23 07:22] LABS: ANION GAP 8 (8-16); BLOOD UREA NITROGEN 9 mg/dl (7-20); CALCIUM 8.4 mg/dl (8.4-10.2); CARBON DIOXIDE 25 mmol/L (21-31); CHLORIDE 107 mmol/L (97-110); CREATININE 0.87 mg/dl (0.61-1.24); GLUCOSE 52 mg/dl (70-220); MAGNESIUM 1.8 mg/dl (1.7-2.5); PHOSPHORUS 2.9 mg/dl (2.5-4.9); POTASSIUM 3.1 mmol/L (3.5-5.1); SODIUM 137 mmol/L (135-144)
[2018-05-23] MEDS: INSULIN ASPART [NOVOLOG] 3 ML PEN SC ×4 (08:00→20:54)
[2018-05-23] MEDS: METOPROLOL 25 MG TAB NGT ×2 (08:29→21:00)
[2018-05-23] MEDS: LISINOPRIL 5 MG TAB PO (08:29)
[2018-05-23] MEDS: CLOPIDOGREL 75 MG TAB PO (08:37)
[2018-05-23] MEDS: POTASSIUM CHLORIDE (SR) 20 MEQ TAB PO (08:37)
[2018-05-23] MEDS: ASPIRIN 81 MG TAB PO (08:37)
[2018-05-23] MEDS: LOPERAMIDE HCL 1 MG/5 ML LIQUID (10 ML UD CUP) PO (16:51)
[2018-05-23] MEDS ORDERED: INSULIN GLARGINE [LANTus] (100 UNITS/ML) SYG SC (20:00)
[2018-05-23 20:12] LABS: TROPONIN-I 0.035 ng/ml (0.000-0.120)
[2018-05-23] MEDS: ATORVASTATIN 20 MG TAB PO (20:53)
[2018-05-23] MEDS: TAMSULOSIN (SR) 0.4 MG CAP PO (20:53)
[2018-05-23] MEDS: INSULIN GLARGINE [LANTus] (100 UNITS/ML) SYG SC (20:59)
[2018-05-24] MEDS: LOPERAMIDE HCL 1 MG/5 ML LIQUID (10 ML UD CUP) PO ×2 (00:59→07:30)
[2018-05-24 01:16] LABS: TROPONIN-I 0.043 ng/ml (0.000-0.120)
[2018-05-24] MEDS: ACCU-CHEK XX (02:16)
[2018-05-24] MEDS: ACETAMINOPHEN 650MG/20.3ML CUP PO (07:30)
[2018-05-24 07:51] LABS: ANION GAP 10 (8-16); BLOOD UREA NITROGEN 8 mg/dl (7-20); CALCIUM 8.7 mg/dl (8.4-10.2); CARBON DIOXIDE 25 mmol/L (21-31); CHLORIDE 109 mmol/L (97-110); CREATININE 0.77 mg/dl (0.61-1.24); GLUCOSE 113 mg/dl (70-220); MAGNESIUM 1.7 mg/dl (1.7-2.5); PHOSPHORUS 3.4 mg/dl (2.5-4.9); POTASSIUM 3.6 mmol/L (3.5-5.1); SODIUM 140 mmol/L (135-144)
[2018-05-24] MEDS: INSULIN ASPART [NOVOLOG] 3 ML PEN SC ×2 (08:00→12:23)
[2018-05-24] MEDS: LISINOPRIL 5 MG TAB PO (08:47)
[2018-05-24] MEDS: ASPIRIN 81 MG TAB PO (08:48)
[2018-05-24] MEDS: CLOPIDOGREL 75 MG TAB PO (08:48)
[2018-05-24] MEDS: METOPROLOL 25 MG TAB NGT (08:48)
== END 2018-05-24 15:10 | DRG 286 ==
LOC: ICU 05-12 13:41 → PP2 05-15 18:35 → ICU 05-12 13:52 → MS4 05-04 11:27 → ICU 05-12 13:52 → E/R 14:04 → ICU 05-04 11:27 → CCL 14:38 → ICU 17:19 → MS4 05-04 11:27 → ICU 05-12 13:52
PROC: 4A023N7 Measurement of Cardiac Sampling and Pressure, Left Heart, Percutaneous Approach (ICD-10-PCS; principal; 2018-05-02 14:40)
PROC: B2031ZZ Plain Radiography of Multiple Coronary Artery Bypass Grafts using Low Osmolar Contrast (ICD-10-PCS; 2018-05-02 14:40)
PROC: B2011ZZ Plain Radiography of Multiple Coronary Arteries using Low Osmolar Contrast (ICD-10-PCS; 2018-05-02 14:40)
PROC: B2081ZZ Plain Radiography of Left Internal Mammary Bypass Graft using Low Osmolar Contrast (ICD-10-PCS; 2018-05-02 14:40)
PROC: 02HV33Z Insertion of Infusion Device into Superior Vena Cava, Percutaneous Approach (ICD-10-PCS; 2018-05-02 14:40)
PROC: 0BH17EZ Insertion of Endotracheal Airway into Trachea, Via Natural or Artificial Opening (ICD-10-PCS; 2018-05-02 14:40)
PROC: 5A1935Z Respiratory Ventilation, Less than 24 Consecutive Hours (ICD-10-PCS; 2018-05-02 14:40)
DX: I25.10 Atherosclerotic heart disease of native coronary artery without angina pectoris (principal); I49.01 Ventricular fibrillation; I50.23 Acute on chronic systolic (congestive) heart failure; N17.0 Acute kidney failure with tubular necrosis; I46.9 Cardiac arrest, cause unspecified; J96.02 Acute respiratory failure with hypercapnia; A41.9 Sepsis, unspecified organism; E87.1 Hypo-osmolality and hyponatremia; K56.7 Ileus, unspecified; N39.0 Urinary tract infection, site not specified; B37.49 Other urogenital candidiasis; E66.01 Morbid (severe) obesity due to excess calories; Z68.38 Body mass index [BMI] 38.0-38.9, adult; Z95.1 Presence of aortocoronary bypass graft; E78.5 Hyperlipidemia, unspecified; G47.33 Obstructive sleep apnea (adult) (pediatric); E11.65 Type 2 diabetes mellitus with hyperglycemia; D64.9 Anemia, unspecified; K75.81 Nonalcoholic steatohepatitis (NASH); I25.5 Ischemic cardiomyopathy; R19.7 Diarrhea, unspecified; E87.6 Hypokalemia; E83.42 Hypomagnesemia; K31.84 Gastroparesis; Z95.5 Presence of coronary angioplasty implant and graft; N40.1 Benign prostatic hyperplasia with lower urinary tract symptoms; R33.8 Other retention of urine
CPT/HCPCS: 31500; 36200; 36415; 36569; 36600; 71045; 74018; 74176; 76705; 76775; 76937; 80048; 80053; 80061; 81001; 81003; 82043; 82270; 82550; 82553; 82803; 82962; 83036; 83605; 83735; 83880; 83935; 84100; 84134; 84155; 84300; 84443; 84478; 84484; 85014; 85018; 85025; 85610; 85730; 86704; 86706; 86708; 86709; 86803; 87040; 87075; 87081; 87086; 87177; 87340; 92526; 92610; 92950; 93005; 93306; 93459; 94002; 94003; 94660; 94770; 97110; 97116; 97163; 97165; 97168; 97530; 97535; 99291-25